=== PATIENT | female | born 1970 | race Caucasian/White ===

== ENCOUNTER 2021-04-07 12:34 | Outpatient (REF) | payer OTHER, SELFPAY ==
--- NOTE | ~2021-04-07 | CT_ITS ---
EXAMINATION: CT ABDOMEN AND PELVIS WITH CONTRAST CLINICAL INFORMATION: Palpable right umbilical mass. COMPARISON: None TECHNIQUE: Multidetector volumetric images were obtained from the superior aspect of the liver through the pubic symphysis following administration 85 mL of Omnipaque 350 intravenous contrast. Sagittal and coronal reformatted images were obtained on the technologist's workstation. Oral contrast: No This CT examination was performed using dose optimization techniques as appropriate, variously including the following: *Automated exposure control *Adjustment of mA and/or kV according to patient size (this includes techniques or standardized protocols for targeted exams where dose is matched to indication/reason for exam; i.e. extremities or head) *Use of iterative reconstruction technique DLP: 492 mGy-cm FINDINGS: LUNG BASES: Minimal atelectatic change is seen in the lingula. The lung bases are clear. LIVER, GALLBLADDER, AND BILIARY TREE: The liver is normal in size, shape, and attenuation. There are 6 mm and 8 mm hypodense lesions in the caudate lobe and the left hepatic lobe (image 11/3). The gallbladder is unremarkable with no evidence of radiopaque gallstones, gallbladder wall thickening, or obvious pericholecystic inflammatory changes. PANCREAS: Unremarkable. SPLEEN: Unremarkable. ADRENAL GLANDS: Unremarkable. KIDNEYS AND URETERS: The kidneys are normal in size, shape, and attenuation. No hydronephrosis, hydroureter, or calculi seen. No perinephric stranding. There is mild fullness of the right kidney pelvis. BLADDER: Unremarkable. GASTROINTESTINAL TRACT: There is oral contrast and stool seen in the colon without distention. The small bowel loops are normal caliber. The appendix is normal caliber. No free air or free fluid seen. There is a large mass arising from the right pelvis and extending above the umbilicus. It measures 12.8 cm in craniocaudad length, 10.8 cm wide and 12.8 cm in AP dimension and approximately 21 Hounsfield units. It is most likely an ovarian or right paraovarian complex cyst. There is another inferior hypodense lesion measuring 2.3 x 1.5 cm on sagittal image 67/6. This may be a second lesion or part of the larger lesion with septation. ABDOMINAL WALL: No evidence of hernia. LYMPH NODES: Normal. VASCULAR: Unremarkable. PELVIC VISCERA: The uterus is anteverted and appears unremarkable. The left adnexa is unremarkable. There is no free fluid seen. OSSEOUS STRUCTURES: There are degenerative disc changes with vacuum disc phenomenon and ventral and posterior spondylosis. No lytic or sclerotic process seen. CT/CT abdomen pelvis w con IMPRESSION: Large right adnexal lesion extending above the umbilicus in the abdomen. It is a thin sliver of parenchymal tissue along the inferior and anterior wall, likely ovarian. This is most likely a large ovarian complex cyst. Inferiorly, there is a smaller second lesion or part of the larger lesion with septation. Mild fullness of the right kidney pelvis. Mild constipation. Most likely liver cysts.
[2021-04-07] MEDS: iohexoL 350 MG/ML 100 ML INFUS..BTL IV (16:06)
== END 2021-04-07 12:35 | disposition home or self-care (01) ==
LOC: HO.CT 12:34
PROVIDERS: Visit Provider Internal Medicine
DX: R19.05 Periumbilic swelling, mass or lump (principal)
CPT/HCPCS: 74177; Q9967

== ENCOUNTER → 2022-01-25 09:29 | Outpatient (BNVA) | payer OTHER, SELFPAY | PROVIDERS: PCP Internal Medicine; Visit Provider Psychiatry & Neurology Neurology ==

== ENCOUNTER → 2022-02-23 15:08 | Outpatient (REF) | payer OTHER, SELFPAY | LOC: HO.SL 15:08 | PROVIDERS: PCP Internal Medicine; Visit Provider Psychiatry & Neurology Neurology | DX: R06.83 Snoring (principal) | CPT/HCPCS: 95806 ==

== ENCOUNTER 2022-08-05 16:00 | Outpatient (REF) | payer OTHER, SELFPAY ==
--- NOTE | ~2022-08-05 | MM_ITS ---
EXAMINATION: MM SCREENING DIGITAL BREAST TOMOSYNTHESIS, BILATERAL CLINICAL INFORMATION: Screening. Asymptomatic. The lifetime risk of breast cancer based on the Tyrer-Cuzick Model is 14%. COMPARISON: Mammography: 11/28/2019, 02/09/2017, 01/24/2017 TECHNIQUE: Digital breast tomosynthesis is performed in both the craniocaudal and mediolateral oblique views along with computer-aided detection (CAD). Synthesized 2D images are generated from the tomosynthesis. FINDINGS: There are scattered areas of fibroglandular density (ACR BI-RADS breast composition Category b). There are no significant masses, abnormal calcifications, or other abnormalities. There are benign grouped dermal calcifications posterior 7:00 left breast. The axilla and skin contours are unremarkable. Parenchymal pattern is similar to prior studies. MM/MM tomosynthesis screening BI IMPRESSION: No mammographic evidence of malignancy. ASSESSMENT: BI-RADS 2: Benign RECOMMENDATION: Routine annual mammography screening. This patient's information was entered into a reminder system with a target due date for their next mammogram.
== END 2022-08-05 16:01 | disposition home or self-care (01) ==
LOC: HO.MAMMO 16:00
PROVIDERS: PCP Internal Medicine; Visit Provider Internal Medicine
DX: Z12.31 Encounter for screening mammogram for malignant neoplasm of breast (principal)
CPT/HCPCS: 77063; 77067

== ENCOUNTER 2022-10-21 11:05 | Day surgery (SDC) | payer OTHER, SELFPAY ==
[2022-10-18 14:19] VITALS: BMI 32.8
--- NOTE | 2022-10-20 10:23 | HO.ANESPROP2 ---
Documented by User: Sandra Osborne NP 10/20/22 10:24 HPI - Anesthesia Eval Consult details Narrative: 52yo F for Colonoscopy PMFSH Active Problems Active Problems: All Active Problems (Updated 07/19/22 @ 11:28 by Heydi Almeida PA-C) Rectal bleeding (Acute) Encounter for screening colonoscopy (Acute) Restless legs (Acute) Loud snoring (Acute) Deviated nasal septum (Acute) Past Medical History Medical History Deviated nasal septum Loud snoring Restless legs Family History Family History Father No problems noted. Mother No problems noted. Maternal Grandmother Colon cancer Surgical History Surgical History H/O: hysterectomy History of Hx of colonoscopy Social History Social History Household Members: Family Alcohol intake: current Alcohol intake frequency: does not drink Patient Tobacco Use Status: Never used Tobacco Use of substances other than those prescribed or required for medical reasons: No Are you DNR?: No Advance Directives: No Advance Directives Information Provided: Yes Current occupational status: employed Current occupation: [employer] [place] [employer] Meds Allergies Allergy/AdvReac Type Severity Reaction Status Date / Time house dust Allergy Mild unknown Verified 10/01/22 13:10 cat dander Allergy Sneezing Verified 10/01/22 13:10 Home Medications Medication Instructions Recorded Confirmed Last Taken Type lorazepam 0.5 mg tablet 1 tab PO BEDTIME PRN Insomnia 10/18/22 10/18/22 Unknown History Exam Exam Date and Time: October 20, 2022 1023 Height,Weight and Vital Signs: Height 5 ft 4 in Weight 86.8 kg Assessment and Plan Assessment Anesthesia Assessment: Chart Reviewed Documented by User: Barrington Forrest MD 10/21/22 12:43 [facility] Past Medical History Medical History Deviated nasal septum Loud snoring Restless legs Family History Family History Father No problems noted. Mother No problems noted. Maternal Grandmother Colon cancer Family history of problems with anesthesia: No Surgical History Surgical History H/O: hysterectomy History of Hx of colonoscopy History of Problems with Anesthesia: No Social History Social History Household Members: Family Alcohol intake: current Alcohol intake frequency: does not drink Patient Tobacco Use Status: Never used Tobacco Use of substances other than those prescribed or required for medical reasons: No Are you DNR?: No Advance Directives: No Advance Directives Information Provided: Yes Current occupational status: employed Current occupation: [employer] [place] [employer] Meds Allergies Allergy/AdvReac Type Severity Reaction Status Date / Time house dust Allergy Mild unknown Verified 10/01/22 13:10 cat dander Allergy Sneezing Verified 10/01/22 13:10 Home Medications Medication Instructions Recorded Confirmed Last Taken Type lorazepam 0.5 mg tablet 1 tab PO BEDTIME PRN Insomnia 10/18/22 10/18/22 Unknown History Exam Airway Mallampati Class: III TM Dist: >3cm Loose/Missing/Broken Teeth: No Heart: rrr Lungs: clear Assessment and Plan Final Anesthetic Review Family History of Problems with Anesthesia: No History of Problems with Anesthesia: No NPO: Yes ASA Class: II Final Preanesthetic Review: No Changes in Pt Med Stat, Meds/Allgs Chart Reviewed, Consent Obtained/Reviewed and Anes Risks/Benef Reviewed Patient Risk: Low Procedure Risk: Low Anesthetic Plan Anesthetic Plan: MAC: Disposition: Standard PACU
[2022-10-21 11:49] VITALS: BP 132/89; PULSE 78; RESP 18; TEMP 36.8; O2SAT 98; BMI 29.2
[2022-10-21] MEDS: Lactated Ringers 1,000 ML 100 ML IVCONT (12:12)
--- NOTE | 2022-10-21 12:32 | MHC.SHP ---
Pre-Procedural Eval Section A Date of Service: 10/21/22 Section B Chief Complaint: rectal bleeding Details of Present Illness: 52y.o F with intermittent rectal bleeding x months. Also with fam hx of CRC in grandparents. Recent PALOMO. Medical History: No relevant PMH History of Previous Operations: Relevant previous surgery/procedure and date(s) (PALOMO ) Allergies: Allergies Allergy/AdvReac Type Severity Reaction Status Date / Time house dust Allergy Mild unknown Verified 10/01/22 13:10 cat dander Allergy Sneezing Verified 10/01/22 13:10 Review of Systems Review of Systems Comment: 10 point ROS negative except as above Exam Exam Comment: Gen appear: No acute distress, well nourished HEENT: no icterus Chest: No overt resp distress Abd: soft, nontender, nondistended Psych: Stable affect, answering questions appropriately Neuro: A/Ox3 noted to move all extremities spontaneously Ext: no peripheral edema Plan Diagnosis/Plan: Unchanged I have reviewed the history and physical and performed a pertinent physical examination on my patient. No changes have occurred unless specified.
--- NOTE | 2022-10-21 12:43 | P.OP_ITS ---
Operative Note Operative Note Date of Service: 10/21/22 Narrative: Procedure: Colonoscopy Indication: Intermittent BRBPR Endoscopist: Roberta Potter MD Anesthesia Provider: Dr Barrington Forrest Anesthesia type: MAC Instrument: Olympus [id number]-H190L Consent: Indication, risks vs benefits, and alternatives were discussed with the patient who gave written informed consent to proceed. EKG, pulse, pulse oximetry and blood pressure were monitored throughout the procedure. Please see anesthesia flowsheet. Procedure: The patient was brought to the procedure room and placed in the left lateral decubitus position. IV medications were administered by the anesthesia provider in attendance. A digital rectal exam was performed which was normal. The colonoscope was then inserted through the anus and advanced through the colon to the cecum at 70 cm,and terminal ileum. Mucosa was carefully examined under high definition white light as the instrument was slowly withdrawn in a retrograde panoramic fashion. Retroflexion was performed in ascending colon and rectum. The procedure was not difficult. There were no immediate obvious complications. The quality of the prep was BBPS: 2+3+2 = adequate Withdrawal time 12 minutes. Limitations: No limitations. Findings: Mucosa: Normal to cecum and terminal ileum. Protruding lesions: * Medium internal hemorrhoids without stigmata of recent bleeding. Impression: 1. Normal colon and teminal ileum mucosa 3. Internal hemorrhoids Recommendations: - Intermittent bleeding likely from hemorrhoids. - Repeat colonoscopy in 10 years for CRC screening
[2022-10-21 13:22] VITALS: BP 140/88; PULSE 67; RESP 18; TEMP 36.2; O2SAT 98
[2022-10-21 13:37] VITALS: BP 137/85; PULSE 69; RESP 18; TEMP 36.2; O2SAT 99
== END 2022-10-21 14:39 | disposition home or self-care (01) ==
PROVIDERS: PCP Internal Medicine; Visit Provider Internal Medicine
PROC: 0DJD8ZZ Inspection of Lower Intestinal Tract, Via Natural or Artificial Opening Endoscopic (ICD-10-PCS; CPT 45378; principal; 2022-10-21 12:10)
DX: K62.5 Hemorrhage of anus and rectum (principal); K64.8 Other hemorrhoids; G25.81 Restless legs syndrome; Z90.710 Acquired absence of both cervix and uterus; Z79.899 Other long term (current) drug therapy
CPT/HCPCS: 45378

== ENCOUNTER 2023-02-14 12:32 | Outpatient (REF) | payer OTHER, SELFPAY ==
--- NOTE | ~2023-02-14 | XR_ITS ---
EXAMINATION: XR FOOT, RIGHT CLINICAL INFORMATION: Right heel pain. COMPARISON: None available. TECHNIQUE: AP, lateral, and oblique views of the right foot. FINDINGS: Bony alignment and mineralization are normal. No fracture, dislocation right ankle joint effusion is seen. Boehler's angle is normal. There is a small plantar calcaneal spur. There is very mild degenerative change of the right first metatarsophalangeal joint. There is no focal soft tissue swelling, gas or foreign body seen. XR/XR foot RT min 3V IMPRESSION: 1. No fracture, dislocation or right ankle joint effusion is seen. 2. There is a small right calcaneal plantar spur. 3. There is very mild degenerative change of the right first metatarsophalangeal joint.
== END 2023-02-14 12:33 | disposition home or self-care (01) ==
LOC: HO.XRAY 12:32
PROVIDERS: PCP Internal Medicine; Visit Provider Physician Assistant
DX: M79.671 Pain in right foot (principal)
CPT/HCPCS: 73630

== ENCOUNTER → 2023-05-04 11:02 | Outpatient (BNVA) | payer OTHER, SELFPAY | PROVIDERS: PCP Internal Medicine; Visit Provider Surgery ==

== ENCOUNTER → 2023-05-09 14:39 | Outpatient (BNVA) | payer OTHER, SELFPAY | PROVIDERS: PCP Internal Medicine; Visit Provider Nurse Practitioner Family ==

== ENCOUNTER → 2023-05-20 10:54 | Outpatient (BNVA) | payer OTHER, SELFPAY | PROVIDERS: PCP Internal Medicine; Visit Provider Surgery ==

== ENCOUNTER → 2023-09-02 14:45 | Outpatient (BNV) | payer OTHER, SELFPAY | PROVIDERS: PCP Internal Medicine; Visit Provider Radiology Diagnostic Radiology | DX: Z12.31 Encounter for screening mammogram for malignant neoplasm of breast (principal) | CPT/HCPCS: 77063; 77067 ==

== ENCOUNTER 2023-09-02 14:53 | Outpatient (REF) | payer OTHER, SELFPAY | END 2023-09-02 14:54 | disposition home or self-care (01) | LOC: HO.MAMMO 14:53 | PROVIDERS: PCP Internal Medicine; Visit Provider Internal Medicine | DX: Z12.31 Encounter for screening mammogram for malignant neoplasm of breast (principal) | CPT/HCPCS: 77063; 77067 ==

== ENCOUNTER 2023-10-20 13:19 | Outpatient (REF) | payer OTHER, SELFPAY ==
[2023-10-20 15:58] LABS: MANUAL DIFF FLAG NO
[2023-10-20 16:06] LABS: Basophils Percent Auto 0.6 % (0-2); Eosinophils Absolute Auto 0.4 X10*3/uL (0.0-0.4); Eosinophils Percent Auto 7.7 % (0-4); Hematocrit 40.9 % (37.0-47.0); Hemoglobin 13.2 g/dl (12.0-16.0); Imm Gran Abs Auto 0.01 X10*3/uL (0.00-0.03); Imm Gran Pct Auto 0.2 % (0.0-0.4); Lymphocytes Absolute Auto 1.5 X10*3/uL (1.2-4.9); Lymphocytes Percent Auto 31.6 % (20-40); Mean Corpuscular HGB Conc 32.3 g/dl (31.0-35.0); Mean Corpuscular Hemoglobin 28.6 pg (27.0-33.0); Mean Corpuscular Volume 88.5 fL (80.0-98.0); Mean Platelet Volume 10.8 fL (9.4-12.3); Monocytes Absolute Auto 0.6 X10*3/uL (0.1-1.2); Monocytes Percent Auto 12.9 % (2-11); Neutrophils Absolute Auto 2.2 x10*3/uL (2.0-8.3); Platelet Count 203 X10*3/uL (160-400); Red Blood Count 4.62 X10*6/uL (4.20-5.50); Red Cell Distribution Width 13.2 % (11.0-16.0); White Blood Count 4.7 X10*3/uL (4.8-10.8)
[2023-10-20 16:22] LABS: Anion Gap 10 (12-20); Blood Urea Nitrogen 16 mg/dL (9-16); Calcium 9.1 mg/dL (8.4-10.2); Carbon Dioxide 28 mmol/L (22-29); Chloride 104 mmol/L (96-108); Estimated Glomerular Filt Rate > 60; Glucose Random 100 mg/dL (60-115); Sodium 138 mmol/L (135-145)
[2023-10-24 11:09] LABS: CA-125 12 U/mL (<35)
== END 2023-10-20 13:20 | disposition home or self-care (01) ==
LOC: HO.HMGCLDS 13:19
PROVIDERS: PCP Internal Medicine; Visit Provider Obstetrics & Gynecology Gynecologic Oncology
DX: D39.10 Neoplasm of uncertain behavior of unspecified ovary (principal)
CPT/HCPCS: 36415; 80048; 85025; 86304

== ENCOUNTER 2023-11-29 13:14 | Outpatient (REF) | payer OTHER, SELFPAY ==
[2023-11-30 09:54] LABS: BV Int Neg Control Negative (Negative); BV Int Pos Control Positive (Positive)
== END 2023-11-29 13:15 | disposition home or self-care (01) ==
LOC: HO.LNP 13:14
PROVIDERS: PCP Internal Medicine; Visit Provider Advanced Practice Midwife
DX: N89.8 Other specified noninflammatory disorders of vagina (principal)
CPT/HCPCS: 87480; 87510; 87660

== ENCOUNTER 2023-11-29 13:14 | Outpatient (AMB) | payer OTHER, SELFPAY ==
[2023-11-29 13:25] VITALS: BP 118/78; BMI 33.3
--- NOTE | 2023-11-29 13:25 | A.OFFVIS_ITS ---
Intake Vital Signs 11/29/23 13:25 Height 5 ft 4 in Weight 194 lb BMI 33.3 BP 118/78 Blood Pressure Location Rt brachial Intake Visit Reasons: ? prolapse Intake Note: Pt c/o feeling a''bulge'' in vaginal area. 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 She denies any abnormal discharge, pelvic pain, or vaginal pain. She admits to have gained weight. Vaginal dryness with intimacy. History of a hysterectomy due to a borderline can ovarian cyst followed by Gyne Onc every 6 months. She reports a sanchez umbilical bulge at times and is wondering if she has some prolapse. [facility] Medical History (Updated 11/29/23 @ 14:14 by CHELY Lincoln) Diabetes Restless legs Loud snoring Deviated nasal septum Surgical History (Updated 11/29/23 @ 13:51 by Candice Romano CNM) Hx of colonoscopy H/O: hysterectomy History of Family History Father No problems noted. Mother No problems noted. Maternal Grandmother Colon cancer Social History Household Members: Family Alcohol intake: current Alcohol intake frequency: holidays/special occasions only Patient Tobacco Use Status: Never used Tobacco Current occupational status: employed Current occupation: [employer] [place] [employer] Female Reproductive History Menstrual control method: none Menopause type: surgical Total pregnancies: 2 Full term: 2 Number of Living Children: 2 Date of last pap smear: 03/29/23 History of abnormal pap smear: No Date of Mammogram: 09/02/23 Review of Systems Const All systems reviewed & are unremarkable except as noted in HPI and below Physical Exam Vital Signs: Last Vital Signs BP 118/78 11/29/23 13:25 BMI result Body Mass Index 33.3 Const General: cooperative, healthy appearing and no acute distress Orientation/consciousness: patient oriented x3 GI Other: Possible periumbilical hernia possible sanchez umbilical hernia Inspection: Yes normal to inspection and Yes scar Palpation (GI): Soft to palpation, Hernia present (Possible periumbilical hernia to the left) and Other GI palpation findings present (Nontender) Rectal Exam - Female: visual inspection normal Other: No external defects, masses, lesions or prolapse normal vaginal, hymenal mucosa. General: Yes bladder normal to palpation External Female Exam: normal appearance of the urethra Speculum Exam - Vagina: normal appearance of the vagina, normal palpation, abnormal vaginal discharge (White and clumpy) and other (Anterior cystocele no significant prolapse with Valsalva) Speculum Exam - Cervix: Cervix absent (No lesions or nodules of the vaginal cuff) Bimanual exam- vagina & uterus: normal bimanual exam, normal palpation, bladder normal to palpation and uterus absent Bimanual Exam- Adnexa, other: normal adnexae Neuro General: patient oriented x3 Assessment & Plan Assessment & Plan (1) Vaginal discharge: Code(s): N89.8 - Other specified noninflammatory disorders of vagina (2) Vaginal dryness: Code(s): N89.8 - Other specified noninflammatory disorders of vagina Plan Discussed: Patient reassured there is no obvious prolapse or abnormal vaginal tissue concerns. Replens moisturizer, website for product information. Return to Gyne/Onc for surveillance, discuss concerns for periumbilical hernia with her surgeons there. If any acute pain to follow up in the ED preop Await for BV panel results. All of her questions and concerns were addressed to the best of my ability. She is agreeable to the plan of care. Orders: Orders Bacterial Vaginosis Panel Today N89.8 - Other specified noninflammatory disorders of vagina Coding Level of Care Code New Pt Level 3 (08162) Diagnoses Vaginal discharge N89.8 Vaginal dryness N89.8
== END 2023-11-29 16:07 | disposition home or self-care (01) ==
LOC: HO.HWS 13:14
PROVIDERS: PCP Internal Medicine; Visit Provider Advanced Practice Midwife
DX: N89.8 Other specified noninflammatory disorders of vagina (principal)
CPT/HCPCS: 99203

== ENCOUNTER 2023-11-30 09:52 | Outpatient (REF) | payer OTHER, SELFPAY ==
--- NOTE | ~2023-11-30 | CT_ITS ---
EXAMINATION: CT ABDOMEN AND PELVIS WITH CONTRAST CLINICAL INFORMATION: Left pelvic palpable lump; question ovarian tumor. COMPARISON: CT abdomen and pelvis dated 04/07/2021. TECHNIQUE: Multidetector volumetric images were obtained from the superior aspect of the liver through the pubic symphysis following administration 85 mL of Omnipaque 350 intravenous contrast. Sagittal and coronal reformatted images were obtained on the technologist's workstation. Oral contrast: No This CT examination was performed using dose optimization techniques as appropriate, variously including the following: *Automated exposure control *Adjustment of mA and/or kV according to patient size (this includes techniques or standardized protocols for targeted exams where dose is matched to indication/reason for exam; i.e. extremities or head) *Use of iterative reconstruction technique DLP: 971 mGy-cm FINDINGS: LUNG BASES: The visualized lung bases are unremarkable. LIVER, GALLBLADDER, AND BILIARY TREE: The liver is normal in size, shape, and attenuation. There are 4 benign, stable low-attenuation hepatic cysts and/or benign hemangiomas, which require no imaging follow-up (3:77, 84, 91 and 188). No new focal hepatic lesion or biliary ductal dilatation is present. The gallbladder is unremarkable with no evidence of radiopaque gallstones, gallbladder wall thickening, or obvious pericholecystic inflammatory changes. PANCREAS: Unremarkable. SPLEEN: Unremarkable. ADRENAL GLANDS: Unremarkable. KIDNEYS AND URETERS: The kidneys are normal in size, shape, and attenuation. No hydronephrosis, hydroureter, or calculi seen. No perinephric stranding. BLADDER: Unremarkable. GASTROINTESTINAL TRACT: Mild wall thickening is questioned of the gastroesophageal junction (3:90). The small and large bowel are unremarkable. No obstruction, free intraperitoneal air or abscess is seen. There is no appendicitis or diverticulitis. The vermiform appendix is normal. ABDOMINAL WALL: There is a tiny fat-containing umbilical hernia. LYMPH NODES: Normal. VASCULAR: Unremarkable. PELVIC VISCERA: The uterus is surgically absent. No pelvic mass, free fluid or lymphadenopathy is seen. OSSEOUS STRUCTURES: At L5-S1, there is marked degenerative disc disease, with vacuum disc phenomenon. There is multi-level thoracolumbar spondylosis and Schmorl's node formation. No acute or aggressive osseous finding is noted. CT/CT abdomen pelvis w IV con IMPRESSION: 1. Mild wall thickening is suspected of the gastroesophageal junction. This could be more fully evaluated with an upper GI series, if clinically indicated. 2. There is no bowel obstruction, free intraperitoneal air or abscess. No appendicitis or diverticulitis is seen. 4. No abdominopelvic mass, free fluid or lymphadenopathy is seen. The previously noted large complex right ovarian cyst is no longer identified, and there has been an interim hysterectomy. Please correlate with patient's past surgical history. 5. There is marked degenerative disc disease at L5-S1. No acute or aggressive osseous finding is noted. Fleischner guidelines were followed.
[2023-11-30] MEDS: iohexoL 350 MG/ML 100 ML INFUS..BTL IV (10:44)
[2023-11-30] MEDS: Barium Sulfate Oral (Vanilla) 450 ML ORAL.SUSP 900 ML PO (14:48)
[2023-12-01 07:10] LABS: Creatinine POC 0.8 mg/dL (0.5-1.4); GFR POC > 60
== END 2023-11-30 09:53 | disposition home or self-care (01) ==
LOC: HO.CT 09:52
PROVIDERS: PCP Internal Medicine; Visit Provider Physician Assistant Surgical
DX: R19.09 Other intra-abdominal and pelvic swelling, mass and lump (principal)
CPT/HCPCS: 74177; 82565; Q9967

== ENCOUNTER 2024-02-21 14:26 | Outpatient (AMB) | payer OTHER, SELFPAY ==
--- NOTE | 2024-02-21 14:29 | A.OFFVIS_ITS ---
Intake Vital Signs 3 02/21/24 14:37 Height 5 ft 4 in Weight 185 lb BMI 31.8 BP 144/74 H Blood Pressure Location Lt brachial Position Sitting Pulse 71 Intake Visit Reasons: umbilical hernia Intake Note: Patient is seen in office for evaluation and treatment of an umbilical hernia. Pt c/o: onset 4 months, painful at times, no increase, no heavy lifting, denies n/v/d/c, had imaging done CT: 11/30/23 Assistant Manager Required: No Accompanied by: Self / Same As Patient Allergies house dust Allergy (Mild, Verified 02/21/24 14:35) unknown cat dander Allergy (Verified 02/21/24 14:35) Sneezing HPI HPI Comments 2 History of Present Illness0 Details 53-year-old female patient presenting fo r evaluation of an umbilical hernia. She 1st noted the lump several months ago and noted occasional discomfort associated with the lump. She denies any severe pain nausea or vomiting. She was initially concerned that this may be related to her previous hysterectomy. She underwent evaluation with her PCP and a CT abdomen and pelvis was ordered in November. The CT revealed an umbilical hernia which contained a portion of the bowel wall. There was no evidence of bowel obstruction noted. She presents today to discuss possible repair of this umbilical hernia. She reports planning a vacation to [place] in April. [facility] Medical History Diabetes Restless legs Loud snoring Deviated nasal septum Surgical History Hx of colonoscopy H/O: hysterectomy History of Family History Father No problems noted. Mother No problems noted. Maternal Grandmother Colon cancer Social History Household Members: Family Alcohol intake: current Alcohol intake frequency: holidays/special occasions only Patient Tobacco Use Status: Never used Tobacco Current occupational status: employed Current occupation: [employer] [place] Review of Systems Const All systems reviewed & are unremarkable except as noted in HPI and below Denies chills, Denies fever(s), Denies headache(s), Denies poor appetite and Denies weakness ENT Denies headache(s) Card Denies chest pain, Denies irregular heart rhythm, Denies palpitations and Denies dyspnea Resp Denies cough, Denies excessive phlegm production and Denies dyspnea GI Denies abdominal pain, Denies bloating, Denies change in bowel habits, Denies constipation, Denies heartburn, Denies diarrhea, Denies nausea and Denies vomiting Denies urinary frequency Musc Denies back pain, Denies muscle weakness and Denies numbness Skin/Breast Denies changing lesions and Denies unusual bruising Neuro Denies headache(s), Denies numbness, Denies paresthesias and Denies weakness Psych Denies anxiety and Denies depression Endo Denies palpitations [place]/Lymph Denies lymphadenopathy Physical Exam Const General: cooperative and no acute distress Nutritional Appearance: well nourished Orientation/consciousness: patient oriented x3 Limitations: no limitations HEENT Head: Yes normocephalic and Yes atraumatic Ears: hearing grossly normal bilaterally Resp Effort & Inspection: normal respiratory effort, no audible wheezes, no cough and no respiratory distress Cardio Jugular venous distension: no JVD GI Inspection: Yes normal to inspection Abdomen image: 2 1. Site of palpable hernia with a midline incision noted. Hernia measures approximately 3 cm in diameter and is reducible. Skin Other: Warm, dry, no rash Neuro General: patient oriented x3 Extrem General: Yes no clubbing, cyanosis or edema Results Reviewed Results Reviewed: CT abdomen and pelvis: Assessment & Plan Assessment & Plan (1) Umbilical hernia without mention of obstruction or gangrene: Code(s): K42.9 - Umbilical hernia without obstruction or gangrene Qualifiers: Obstruction and gangrene presence: without obstruction or gangrene Qualified Code(s): K42.9 - Umbilical hernia without obstruction or gangrene Plan 53-year-old female patient presenting with a palpable lump near the umbilicus which developed recently and confirmed by CT abdomen and pelvis to be an umbilical hernia. On examination she has a reducible umbilical hernia measuring approximately 3 cm in diameter. I recommended a repair of the umbilical hernia with mesh as a short-stay surgery. After discussion of the procedure, risks, and alternatives, she consents to the repair of this umbilical hernia with mesh. Coding Level of Care Code New Pt Level 4 (90199) Diagnoses Umbilical hernia without obstruction and without gangrene K42.9 Obstruction and gangrene presence: without obstruction or gangrene
[2024-02-21 14:37] VITALS: BP 144/74; PULSE 71; BMI 31.8
== END 2024-02-21 14:56 | disposition home or self-care (01) ==
PROVIDERS: PCP Internal Medicine; Visit Provider Surgery
DX: K42.9 Umbilical hernia without obstruction or gangrene (principal)
CPT/HCPCS: 99204

== ENCOUNTER → 2024-02-21 14:26 | Outpatient (BNVA) | payer OTHER, SELFPAY | PROVIDERS: PCP Internal Medicine; Visit Provider Surgery ==

== ENCOUNTER 2024-03-14 10:00 | Day surgery (SDC) | payer OTHER, SELFPAY ==
[2024-03-12 08:31] VITALS: BMI 31.8
--- NOTE | 2024-03-12 13:11 | HO.ANESPROP2 ---
Documented by User: Sandra Osborne NP 03/12/24 13:12 HPI - Anesthesia Eval Consult details Narrative: 53yo F for Hernia Umbilical Reducible with mesh ? DM. In hx but no rx PMFSH Active Problems Active Problems: All Active Problems Umbilical hernia without mention of obstruction or gangrene (Acute) Foot pain, bilateral (Acute) Knee pain (Acute) BMI 30.0-30.9,adult (Acute) Morbid (severe) obesity due to excess calories (Acute) AARON (obstructive sleep apnea) (Acute) Rectal bleeding (Acute) Encounter for screening colonoscopy (Acute) Restless legs (Acute) Loud snoring (Acute) Deviated nasal septum (Acute) Past Medical History Medical History (Updated 03/14/24 @ 12:17 by Gail Garduno RN) Sleep apnea Asthma Hx of transfusion of packed red blood cells Diabetes Restless legs Loud snoring Deviated nasal septum Family History Family History Father No problems noted. Mother No problems noted. Maternal Grandmother Colon cancer Family history of problems with anesthesia: No Surgical History Surgical History Hx of colonoscopy H/O: hysterectomy History of History of Problems with Anesthesia: No Social History Social History Household Members: Family Alcohol intake: current Alcohol intake frequency: holidays/special occasions only Patient Tobacco Use Status: Never used Tobacco Use of substances other than those prescribed or required for medical reasons: No Are you DNR?: No Advance Directives: No Advance Directives Information Provided: Yes Current occupational status: employed Current occupation: [employer] Meds Allergies Allergy/AdvReac Type Severity Reaction Status Date / Time house dust Allergy Mild unknown Verified 03/14/24 10:13 cat dander Allergy Sneezing Verified 03/14/24 10:13 Home Medications ?Medication ?Instructions ?Recorded ?Confirmed ?Last Taken ?Type estradiol 0.025 mg/24 hr 1 patch transdermal 2XW 05/04/23 03/14/24 Unknown History semiweekly transdermal patch albuterol sulfate 90 mcg/actuation 2 puff inhalation Q6H PRN 05/09/23 03/14/24 Unknown History aerosol inhaler Shortness Of Breath Or Wheezing Exam Height,Weight and Vital Signs: Height 5 ft 4 in Weight 83.915 kg Assessment and Plan Assessment Anesthesia Assessment: Chart Reviewed Final Anesthetic Review Family History of Problems with Anesthesia: No History of Problems with Anesthesia: No Documented by User: Christie Rodríguez MD 03/14/24 12:21 [facility] Past Medical History Medical History (Updated 03/14/24 @ 12:17 by Gail Garduno RN) Sleep apnea Asthma Hx of transfusion of packed red blood cells Diabetes Restless legs Loud snoring Deviated nasal septum Family History Family History Father No problems noted. Mother No problems noted. Maternal Grandmother Colon cancer Surgical History Surgical History Hx of colonoscopy H/O: hysterectomy History of Social History Social History Household Members: Family Alcohol intake: current Alcohol intake frequency: holidays/special occasions only Patient Tobacco Use Status: Never used Tobacco Use of substances other than those prescribed or required for medical reasons: No Are you DNR?: No Advance Directives: No Advance Directives Information Provided: Yes Current occupational status: employed Current occupation: [employer] Meds Allergies Allergy/AdvReac Type Severity Reaction Status Date / Time house dust Allergy Mild unknown Verified 03/14/24 10:13 cat dander Allergy Sneezing Verified 03/14/24 10:13 Home Medications ?Medication ?Instructions ?Recorded ?Confirmed ?Last Taken ?Type estradiol 0.025 mg/24 hr 1 patch transdermal 2XW 05/04/23 03/14/24 Unknown History semiweekly transdermal patch albuterol sulfate 90 mcg/actuation 2 puff inhalation Q6H PRN 05/09/23 03/14/24 Unknown History aerosol inhaler Shortness Of Breath Or Wheezing Exam Airway Mallampati Class: II TM Dist: >3cm Neck ROM: Full Heart: rrr Lungs: cta Assessment and Plan Assessment Anesthesia Assessment: Anesthesia Plan Discussed Final Anesthetic Review NPO: Yes ASA Class: II Final Preanesthetic Review: No Changes in Pt Med Stat, Meds/Allgs Chart Reviewed and Consent Obtained/Reviewed Patient Risk: Low Procedure Risk: Low Anesthetic Plan Anesthetic Plan: GA Disposition: Standard PACU
[2024-03-14] VITALS (7 sets, daily range): BP systolic 114–144; BP diastolic 78–87; PULSE 60–106; RESP 15–18; TEMP 36.5–36.8; O2SAT 95–99; BMI 30.2
[2024-03-14] MEDS: Lactated Ringers 1,000 ML 100 ML IVCONT (10:38)
--- NOTE | 2024-03-14 11:51 | MHC.SHP ---
Pre-Procedural Eval Section A - 24 Hr Update-Section A only Date of Service: 03/14/24 The patient is an INPATIENT: No Changes since office visit: Yes Patient answered all questions; No Cold of Flu in the past 2 weeks, No New Medical Problems and No Changes in Medication The patient has been examined within 24 hours of the surgical procedure. The History & Physical has been completed within 30 days and I have reviewed it.: Yes Section B - Complete if H&P > 30 days Chief Complaint: Umbilical hernia without obstruction or gangrene Allergies: Allergies Allergy/AdvReac Type Severity Reaction Status Date / Time house dust Allergy Mild unknown Verified 03/14/24 10:13 cat dander Allergy Sneezing Verified 03/14/24 10:13 Plan Diagnosis/Plan: Unchanged I have reviewed the history and physical and performed a pertinent physical examination on my patient. No changes have occurred unless specified. Time Spent With Patient Time: Total time managing care of this patient today ____ minutes.
--- NOTE | 2024-03-14 13:30 | P.OP_ITS ---
Operative Note Operative Note Date of Service: 03/14/24 Narrative: Preoperative diagnosis: Reducible incisional/umbilical hernia, 3 cm diameter Postoperative diagnosis: Same Procedure: Repair of incisional/umbilical hernia, 3 cm, reducible Surgeon: Karel Green MD Medical Office Clerk: Bessie Sauceda PA-C Anesthesia: General endotracheal Indications for procedure: 53-year-old female presenting with a palpable lump in the umbilicus at the site of a previous surgery. She reports the lump increases in size with lifting and straining but reduces when in the supine position. On examination the patient has a small incisional/umbilical hernia at the site of a previous surgery. There is no tenderness to palpation. CT abdomen and pelvis confirms bowel within the hernia. Operative findings: 3 cm incisional/umbilical hernia, reducible repaired using a 6.4 cm round Ventralex mesh. Specimen: None Estimated blood loss: 3 mL Complications: None Procedure details: Patient was brought to the OR placed in a supine position. After administering general anesthesia the patient's abdomen was prepped with ChloraPrep and draped in a sterile fashion. A surgical time-out was called the consent confirmed. Patient received preoperative antibiotics and Venodyne boots were in place. Local anesthesia consisting of 0.5% Sensorcaine was infiltrated in the midline adjacent to the umbilicus. Incision was then made in the midline and carried down through subcutaneous tissue. Dissection was continued down to the hernia sac. This was then dissected free from the surrounding subcutaneous tissue down to the fascial defect. Fascial defect was then further defined using electrocautery. The defect was then reduced into the abdominal cavity. A preperitoneal space was then created using a combination of blunt and electrocautery dissection. A 6.4 cm Ventralex mesh round was then obtained. This was deployed within the preperitoneal space and secured in 4 quadrants using a 0 Tycron suture. The fascia was then closed over the mesh using [id number] 0 Tycron sutures incorporating the mesh within the closure. Wounds were then irrigated with saline solution and suctioned dry. The umbilical skin was then secured to the fascia using a 3-0 Polysorb suture. De rmis was then reapproximated using interrupted 3-0 Polysorb sutures. Skin was closed using a running subcuticular 4-0 Polysorb suture. Sterile dressings consisting of Steri-Strips, 2 x 2 gauze and Tegaderm were then applied. The patient tolerated the procedure well. Sponge, instrument, needle counts reported as correct. The patient was transferred to PACU in stable condition.
[2024-03-14] MEDS: oxyCODONE HCl Immed Release 5 MG TABLET PO (14:25)
== END 2024-03-14 15:33 | disposition home or self-care (01) ==
PROVIDERS: PCP Internal Medicine; Visit Provider Surgery
PROC: (CPT 49593; principal; 2024-03-14 11:30)
DX: K42.9 Umbilical hernia without obstruction or gangrene (principal); G25.81 Restless legs syndrome; R06.83 Snoring; Z79.899 Other long term (current) drug therapy; Z98.890 Other specified postprocedural states
CPT/HCPCS: 49593; C1781; J0330; J0665; J0690; J1100; J1596; J2250; J2405; J2704; J3010

== ENCOUNTER → 2024-03-14 10:00 | Outpatient (BNV) | payer OTHER, SELFPAY | PROVIDERS: PCP Internal Medicine; Visit Provider Surgery | DX: K42.9 Umbilical hernia without obstruction or gangrene (principal) | CPT/HCPCS: 49593 ==

== ENCOUNTER → 2024-03-23 09:44 | Outpatient (BNVA) | payer OTHER, SELFPAY | PROVIDERS: PCP Internal Medicine; Visit Provider Surgery ==

== ENCOUNTER 2024-03-27 09:53 | Outpatient (AMB) | payer OTHER, SELFPAY ==
--- NOTE | 2024-03-27 09:56 | A.OFFVIS_ITS ---
Vital Signs 03/27/24 10:03 Weight 181 lb BP 120/77 Blood Pressure Location Rt brachial Position Sitting Pulse 69 Intake Visit Reasons: S/P umbilical hernia w/mesh Intake Note: This patient presents for a post-op assessment status post umbilical hernia repair with mesh. Patient c/o; reports feel a lump under the incision. Field Control Inspector Required: No Accompanied by: Self / Same As Patient Allergies house dust Allergy (Mild, Verified 03/27/24 10:02) unknown cat dander Allergy (Verified 03/27/24 10:02) Sneezing Medication List - Last Reconciled 03/27/24 by Karel Green MD albuterol sulfate 90 mcg/actuation 2 puffs inhalation Q6H PRN docusate sodium (Colace) 100 mg PO DAILY estradiol 1 patch transdermal 2XW fluticasone propionate 50 mcg/actuation sprays intranasal HPI Comments Details: 53-year-old female patient status post repair of a large umbilical hernia on 03/14/2024. The repair was performed using a Ventralex 6.4 cm round mesh. She tolerated the procedure well but does note some hardness around the previous incision. She denies any redness or discharge. [facility] Medical History (Updated 03/14/24 @ 12:17 by Gail Garduno RN) Sleep apnea Asthma Hx of transfusion of packed red blood cells Diabetes Restless legs Loud snoring Deviated nasal septum Surgical History (Updated 03/27/24 @ 10:04 by CHELY Marrero) History of umbilical hernia repair Hx of colonoscopy H/O: hysterectomy History of Family History Father No problems noted. Mother No problems noted. Maternal Grandmother Colon cancer Social History Household Members: Family Alcohol intake: current Alcohol intake frequency: holidays/special occasions only Patient Tobacco Use Status: Never used Tobacco Current occupational status: employed Current occupation: [employer] Physical Exam Const General: comfortable Nutritional Appearance: well nourished Orientation/consciousness: patient oriented x3 Resp Effort & Inspection: normal respiratory effort GI Other: Well-healed umbilical incision in the midline over the previous incision. Small seroma noted in the umbilicus. No changes noted with Valsalva maneuvers. Neuro General: patient oriented x3 Assessment & Plan Assessment & Plan (1) Umbilical hernia without mention of obstruction or gangrene: Code(s): K42.9 - Umbilical hernia without obstruction or gangrene Category: Medical Qualifiers: Obstruction and gangrene presence: without obstruction or gangrene Qualified Code(s): K42.9 - Umbilical hernia without obstruction or gangrene Plan: Patient returns 1 week following repair of an umbilical hernia with mesh. She tolerated the procedure well. There may be a small seroma residual at the site of the previous hernia. I recommended observation with return in 1 month for follow-up examination. She should continue to avoid lifting greater than 10 lb until that time. Coding Level of Care Code Global (17604) Diagnoses Umbilical hernia without obstruction and without gangrene K42.9 Obstruction and gangrene presence: without obstruction or gangrene
[2024-03-27 10:03] VITALS: BP 120/77; PULSE 69
== END 2024-03-27 10:10 | disposition home or self-care (01) ==
PROVIDERS: PCP Internal Medicine; Visit Provider Surgery
DX: K42.9 Umbilical hernia without obstruction or gangrene (principal)
CPT/HCPCS: 99212

== ENCOUNTER → 2024-03-27 09:53 | Outpatient (BNVA) | payer OTHER, SELFPAY | PROVIDERS: PCP Internal Medicine; Visit Provider Surgery ==

== ENCOUNTER 2024-09-01 09:24 | Outpatient (REF) | payer OTHER, SELFPAY ==
[2024-09-01 11:08] LABS: MANUAL DIFF FLAG NO
[2024-09-01 11:09] LABS: Basophils Absolute Auto 0.1 X10*3/uL (0.0-0.2); Basophils Percent Auto 1.3 % (0-2); Eosinophils Absolute Auto 0.3 X10*3/uL (0.0-0.4); Eosinophils Percent Auto 4.8 % (0-4); Hematocrit 41.9 % (37.0-47.0); Hemoglobin 13.8 g/dl (12.0-16.0); Imm Gran Abs Auto 0.01 X10*3/uL (0.00-0.03); Imm Gran Pct Auto 0.2 % (0.0-0.4); Lymphocytes Absolute Auto 2.1 X10*3/uL (1.2-4.9); Mean Corpuscular HGB Conc 32.9 g/dl (31.0-35.0); Mean Corpuscular Hemoglobin 29.4 pg (27.0-33.0); Mean Corpuscular Volume 89.1 fL (80.0-98.0); Mean Platelet Volume 10.7 fL (9.4-12.3); Monocytes Absolute Auto 0.5 X10*3/uL (0.1-1.2); Monocytes Percent Auto 8.5 % (2-11); Neutrophils Absolute Auto 2.6 x10*3/uL (2.0-8.3); Neutrophils Percent Auto 47.2 % (45-73); Platelet Count 222 X10*3/uL (160-400); Red Cell Distribution Width 12.5 % (11.0-16.0); White Blood Count 5.4 X10*3/uL (4.8-10.8)
[2024-09-01 11:23] LABS: Estimated Average Glucose 108 mg/dL; Hemoglobin A1C 117.9645 umol/L; Hemoglobin A1c % 5.4 % (<6.0); Total Hemoglobin (HGBA1C) 3294.7482 umol/L
[2024-09-01 11:33] LABS: Alanine Aminotransferase 25 U/L (0-31); Anion Gap 11 (12-20); Aspartate Amino Transferase 22 U/L (5-31); Blood Urea Nitrogen 16 mg/dL (9-16); Calcium 9.6 mg/dL (8.4-10.2); Carbon Dioxide 27 mmol/L (22-29); Chloride 107 mmol/L (96-108); Cholesterol 223 mg/dL (<200); Estimated Glomerular Filt Rate > 60; Glucose Random 91 mg/dL (60-115); HDL Cholesterol 68 mg/dL (>40); LDL Cholesterol Calculated 138 mg/dL (<100); Potassium 4.2 mmol/L (3.3-5.1); Sodium 141 mmol/L (135-145); Triglycerides 89 mg/dL (<150)
[2024-09-01 11:51] LABS: Thyroid Stimulating Hormone 1.68 uIU/mL (0.32-4.0)
[2024-09-04 08:13] LABS: CA-125 11 U/mL (<35)
== END 2024-09-01 09:25 | disposition home or self-care (01) ==
LOC: HO.HMGCLDS 09:24
PROVIDERS: PCP Internal Medicine; Visit Provider Internal Medicine
DX: Z00.00 Encounter for general adult medical examination without abnormal findings (principal); R73.9 Hyperglycemia, unspecified; Z13.29 Encounter for screening for other suspected endocrine disorder; Z13.220 Encounter for screening for lipoid disorders; Z90.711 Acquired absence of uterus with remaining cervical stump
CPT/HCPCS: 36415; 80048; 80061; 83036; 84443; 84450; 84460; 85025; 86304

== ENCOUNTER 2024-10-17 13:25 | Outpatient (REF) | payer OTHER, SELFPAY ==
--- NOTE | ~2024-10-17 | MM_ITS ---
EXAMINATION: MM SCREENING DIGITAL BREAST TOMOSYNTHESIS, BILATERAL CLINICAL INFORMATION: Screening. Asymptomatic. COMPARISON: Mammography: Comparison is made with available priors TECHNIQUE: Digital breast mammography with tomosynthesis is performed in both the craniocaudal and mediolateral oblique views along with computer-aided detection (CAD). FINDINGS: The breasts are heterogeneously dense, which may obscure small masses (ACR BI-RADS breast composition Category c). There are no significant masses, abnormal calcifications, or other abnormalities. MM/MM tomosynthesis screening BI IMPRESSION: No mammographic evidence of malignancy. ASSESSMENT: BI-RADS BI-RADS 1 - Negative RECOMMENDATION: Routine annual mammography screening. 1 year F/U This examination should not preclude the clinical evaluation of a suspicious palpable abnormality. This patient's information was entered into a reminder system with a target due date for their next mammogram. Electronically signed by: Rosemary Vallejo DO 10/26/2024 10:12 AM [facility]
== END 2024-10-17 13:26 | disposition home or self-care (01) ==
LOC: HO.MAMMO 13:25
PROVIDERS: PCP Internal Medicine; Visit Provider Internal Medicine
DX: Z12.31 Encounter for screening mammogram for malignant neoplasm of breast (principal)
CPT/HCPCS: 77063; 77067

== ENCOUNTER → 2024-10-17 13:30 | Outpatient (BNV) | payer OTHER, SELFPAY | PROVIDERS: PCP Internal Medicine; Visit Provider Internal Medicine | DX: Z12.31 Encounter for screening mammogram for malignant neoplasm of breast (principal) | CPT/HCPCS: 77063; 77067 ==

== ENCOUNTER 2024-12-13 10:24 | Outpatient (REF) | payer OTHER, SELFPAY ==
--- NOTE | ~2024-12-13 | US_ITS ---
EXAMINATION: US EXTRACRANIAL CAROTID DUPLEX, BILATERAL CLINICAL INFORMATION: Letter in the neck. [Copy COMPARISON: None available. TECHNIQUE: Real-time ultrasound and Doppler techniques (integrating B-mode 2-D vascular images, Doppler spectral analysis and color-flow Doppler imaging) were utilized to interrogate the extracranial carotid arteries, the vertebral arteries and proximal subclavian arteries bilaterally. The degree of stenosis is determined by criteria similar to NASCET. FINDINGS: Right Side: 1. There is no atherosclerotic plaque seen in the bifurcation/proximal ICA region. 2. The common carotid artery PSV proximally is 87.9 cm/s and distally 72.7 cm/s. 3. The proximal internal carotid artery velocities are 78 cm/s systolic and 39.3 cm/s diastolic. 4. The proximal external carotid artery PSV is 108 cm/s. 5. The vertebral artery shows antegrade flow. 6. The subclavian artery waveforms are normal. Left Side: 1. There is no atherosclerotic plaque seen in the bifurcation/proximal ICA region. 2. The common carotid artery PSV proximally is 125 cm/s and distally 73.9 cm/s. 3. The proximal internal carotid artery velocities are 70.4 cm/s systolic and 34 cm/s diastolic. 4. The proximal external carotid artery PSV is 103 cm/s. 5. The vertebral artery shows antegrade flow. 6. The subclavian artery waveforms are normal. US/US carotid duplex BI IMPRESSION: 1. RIGHT: No hemodynamically significant stenosis in right carotid artery. 2. LEFT: No hemodynamically significant stenosis and left carotid artery. 3. Normal antegrade flow seen in both vertebral arteries.. Electronically signed by: Alessandro Stuart MD 12/13/2024 01:35 PM EST
== END 2024-12-13 10:25 | disposition home or self-care (01) ==
LOC: HO.HMGCX 10:24
PROVIDERS: PCP Internal Medicine; Visit Provider Internal Medicine
DX: R09.89 Other specified symptoms and signs involving the circulatory and respiratory systems (principal)
CPT/HCPCS: 93880

== ENCOUNTER → 2024-12-13 10:49 | Outpatient (BNV) | payer OTHER, SELFPAY | PROVIDERS: PCP Internal Medicine; Visit Provider Radiology Diagnostic Radiology | DX: M53.82 Other specified dorsopathies, cervical region (principal) | CPT/HCPCS: 93880 ==

== ENCOUNTER 2024-12-28 14:55 | Outpatient (REF) | payer OTHER, SELFPAY ==
--- OUTSIDE RECORDS SUMMARY | 2024-12-28 14:59 | XMS_ITS | Encounter Summary ---
Author Organization [facility] Address [address] [place] [address] Care Team Providers Care Panel Raiser Operator Name Role Phone Manuelito Brown DO Primary Care Provider [phone] Encounter Details Date Type Department Care Team ([facility] st Contact Info) Description 12/24/2024 2:45 PM EST Office Visit Bariatric Surgery - [address] [place] [id number] Roseline Guzman PA [address] [place] [address] [place] [address] Class 1 obesity with body mass index (BMI) of 33.0 to 33.9 in adult, unspecified obesity type, unspecified whether serious comorbidity present (Primary Dx); Secondary hypertension Social History Tobacco Use Types Packs/Day Years Used Date Smoking Tobacco: Never Assessed Sex and Gender Information Value Date Recorded Sex Assigned at Not on file Gender Identity Not on file Sexual Orientation Not on file Job Start Date Occupation Industry Not on file Not on file Not on file documented as of this encounter Last Filed Vital Signs Vital Sign Reading Time Taken Comments Blood Pressure 153/98 12/24/2024 3:09 PM EST Pulse 83 12/24/2024 3:09 PM EST Temperature - - Respiratory Rate - - Oxygen Saturation 97% 12/24/2024 3:09 PM EST Inhaled Oxygen Concentration - - Weight 87.5 kg (193 lb) 12/24/2024 3:09 PM EST Height 162.6 cm (5' 4 ) 12/24/2024 3:09 PM EST Body Mass Index 33.13 12/24/2024 3:09 PM EST documented in this encounter Plan of Treatment Upcoming Encounters Date Type Department Care Team (Late st Contact Info) Description 01/01/2025 1:15 PM EST Telemedicine Bariatric Surgery - [place] [address] [place] [address] Roseline Guzman PA 95 [facility] [address] 1 [facility] Bariatric Surgery [place] [id number] 02/05/2025 10:00 AM EDT Nutrition Bariatric Surgery - [place] [address] [place] [address] [place], [place] [id number] 08/06/2025 1:30 PM EDT Office Visit Bariatric Surgery - [place] [address] [facility] [address] [place] [address] Radhika Echavarria PA [address] [facility] [address] [place] [address] Scheduled Orders Name Type Priority Associated Diagnoses Orde r Schedule CBC and differential Lab Routine Class 1 obesity with body mass index (BMI) of 33.0 to 33.9 in adult, unspecified obesity type, unspecified whether serious comorbidity present Secondary hypertension 1 Occurrences starting 12/24/2024 until 12/24/2025 Vitamin D 1,25 dihydroxy Lab Routine Class 1 obesity with body mass index (BMI) of 33.0 to 33.9 in adult, unspecified obesity type, unspecified whether serious comorbidity present Secondary hypertension 1 Occurrences starting 12/24/2024 until 12/24/2025 Iron and TIBC Lab Routine Class 1 obesity with body mass index (BMI) of 33.0 to 33.9 in adult, unspecified obesity type, unspecified whether serious comorbidity present Secondary hypertension 1 Occurrences starting 12/24/2024 until 12/24/2025 Comprehensive metabolic panel Lab Routine Class 1 obesity with body mass index (BMI) of 33.0 to 33.9 in adult, unspecified obesity type, unspecified whether serious comorbidity present Secondary hypertension 1 Occurrences starting 12/24/2024 until 12/24/2025 Ferritin Lab Routine Class 1 obesity with body mass index (BMI) of 33.0 to 33.9 in adult, unspecified obesity type, unspecified whether serious comorbidity present Secondary hypertension 1 Occurrences starting 12/24/2024 until 12/24/2025 Hemoglobin A1c Lab Routine Class 1 obesity with body mass index (BMI) of 33.0 to 33.9 in adult, unspecified obesity type, unspecified whether serious comorbidity present Secondary hypertension 1 Occurrences starting 12/24/2024 until 12/24/2025 Lipid panel Lab Routine Class 1 obesity with body mass index (BMI) of 33.0 to 33.9 in adult, unspecified obesity type, unspecified whether serious comorbidity present Secondary hypertension 1 Occurrences starting 12/24/2024 until 12/24/2025 Parathyroid hormone intact Lab Routine Class 1 obesity with body mass index (BMI) of 33.0 to 33.9 in adult, unspecified obesity type, unspecified whether serious comorbidity present Secondary hypertension 1 Occurrences starting 12/24/2024 until 12/24/2025 Vitamin A Lab Routine Class 1 obesity with body mass index (BMI) of 33.0 to 33.9 in adult, unspecified obesity type, unspecified whether serious comorbidity present Secondary hypertension 1 Occurrences starting 12/24/2024 until 12/24/2025 Vitamin B1 Lab Routine Class 1 obesity with body mass index (BMI) of 33.0 to 33.9 in adult, unspecified obesity type, unspecified whether serious comorbidity present Secondary hypertension 1 Occurrences starting 12/24/2024 until 12/24/2025 Vitamin B12 Lab Routine Class 1 obesity with body mass index (BMI) of 33.0 to 33.9 in adult, unspecified obesity type, unspecified whether serious comorbidity present Secondary hypertension 1 Occurrences starting 12/24/2024 until 12/24/2025 documented as of this encounter Visit Diagnoses Diagnosis Class 1 obesity with body mass index (BMI) of 33.0 to 33.9 in adult, unspecified obesity type, unspecified whether serious comorbidity present- Primary Secondary hypertension Other secondary hypertension, unspecified documented in this encounter Care Teams Panel Raiser Operator Relationship Specialty Start Date End Date Manuelito Brown DO [address] [place] [id number] PCP - General Internal Medicine 06/02/22 documented as of this encounter
--- OUTSIDE RECORDS SUMMARY | 2024-12-28 14:59 | XMS_ITS | Data Portability ---
Author Organization [place] - [facility], Allergy Address [address] [place] [phone] Assessment No assessment recorded. Plan of Treatment Reminders Order Date Submit Date Provider Last Modified By Organization Details Last Modified Time Details Appointments Establish ed 15 2024 10:30A M JAY SPRINGER MD Not available Not available Not available Lab None recorded. Referral None recorded. Procedures None recorded. Surgeries None recorded. Imaging None recorded. Medication Orders None recorded. Patient TargetsNo targets recorded. Patient Instructions Encounter Date Encounter Id Patient Instructions Last Modified By Organization Details Last Modified Time 04/11/2024 [id number] Nursing Documentation for Allergy Testing (Split Test): Vital Signs: Blood Pressure: 106/76 ? ? ? Pulse: ? ? ?82 Oxygen Saturation: ? ? ?97 % Weight: lbs: 170 ? ? ? kg: ? ? ? History of asthma: {{Yes* No}} Asthma Meds: ? ? ?.albuterol last used: ? ? ?weeks ago Chance that : {{Yes No* N/A}} Antihistamine use: {{Yes No*}} Med used: ? ? ? Nursing notes: Patient tolerated procedure well {{Yes* No}} Benadryl cream to test sites {{Yes No}} Patient became syncopal-placed in supine position {{Yes No}} Testing Performed by: {{ANIYA Caban, [facility]* Rox Hdez}} Requesting Provider {{Dr. Gabriela Begum}} bridget Not available 04/11/2024 11:28:49 Reason for Referral None Reported. Results Created Date Observation Date Name Description Value Unit Range Abnormal Flag Note LastModifiedBy Organization Detail LastModifiedTime 07/11/20 24 02/24/2022 imagi ng/di agnos tic resul t No observ ation record ed. [email or web address] Not Available 00:16:58 Result Notes None recorded. Problems Name Problem SNOMED Code Status Onset Date Resolution Date Notes Provider Name and Address Organization Details Recorded Time Allergic rhinitis 80923166 Active 2023 KVNG SHANNON MD [address] [facility],[place] [address], [place], [address] , [facility] 4 08:50:26 Obstructi ve sleep apnea syndrome 46101098 Active 2023 Obstructiv e sleep apnea (adult) (pediatric ); Note: Date Diagnosed: 03/17/2024 11:20 AM (G47.33) Not Available [facility] 4 02:36:04 Deviated nasal septum 029988917 Active 2023 Deviated nasal septum; Note: Date Diagnosed: 03/17/2024 11:36 AM (J34.2) Not Available [facility] 4 02:36:06 Polyp of nasal cavity and/or nasal sinus 141299666 Active 2023 Nasal polyp, unspecifie d; Note: Date Diagnosed: 03/17/2024 11:36 AM (J33.9) Not Available [facility] 4 02:36:09 Problem Notes None recorded. Procedures Surgical History Date Name Laterality Status Provider Name and Address Organization Details Recorded Time 4 Allergy Testing-Full completed EMELY CROCKER Jessica [address] [facility],[place] [address], [place], [address], [facility] 04/11/2024 11:27:45 Imaging Results Imaging Date Name Status LastModified by Organiz ation Details LastModified Time 02/24/2022 imaging/diag nostic result completed [email or web address] Information not available 07/11/2024 00:16:58 Procedure Notes None recorded. Medical Equipment None Reported. Medications Name Sig Start Date Stop Date Status Note LastModified by Organization Details LastModified Time prednisone 20 mg tablet TAKE 2 TABLETS BY MOUTH EVERY DAY FOR 5 DAYS active Not Available Not Available No t Available benzonatate 100 mg capsule TAKE 1 CAPSULE BY MOUTH THREE TIMES A DAY NEEDED FOR 7 DAYS active Not Available Not Available No t Available albuterol sulfate HFA 90 mcg/actuation aerosol inhaler INHALE 1 PUFF INTO THE LUNGS EVERY 4 HOURS NEEDED FOR 30 DAYS active Not Available Not Available No t Available fluticasone propionate 50 mcg/actuation nasal spray,suspensi on [place] 2 spray once a day active Not Available Not Available No t Available oxycodone 5 mg tablet active Not Available Not Available Not Available escitalopram 10 mg tablet active Not Available Not Available Not Available Wegovy 1.7 mg/0.75 mL subcutaneous pen injector active Not Available Not Available Not Available Vitals Date Recorded Oxygen saturation Oxygen saturation in Arterial blood by Pulse oximetry Heart rate Systolic blood pressure Diastolic blood pressure Provider Name and Address Organization Details Last Updated DateTime 4 97 % 97 % 82 /min 106 mm[Hg] 76 mm[Hg] [facility] [address], [address] [place], [place] - [facility] 4 10:57:45 Social History None recorded. Functional Status None recorded. Mental Status None recorded. Family History Nothing Reported. Medical History No medical history recorded. Gynecological HistoryNo gynecological history recorded. Obstetrics History GPAL:G 0 P 0 0 0 0 Past Encounters Encounter ID Performer Location Encounter Start Date Encounter Closed Date Diagnosis/Indication Diagnosis SNOMED-CT Code Diagnosis ICD10 Code Diagnosis Note [id number] KVNG SHANNON MD Allergy [address] [facility] 100 [place] [address] 04/11/2024 10:45:26 04/11/2024 13:09:17 Allergic rhinitis 47103702 J30.9 Health Concerns Section Related Observation LastModified by Organization Detai ls LastModified Time None Recorded Concern Status LastModified by Organization Details LastModified Time None Recorded Advance Directives Directive None Recorded Payers Encounter Date Sequence Insurance Name Policy Number Policy Olivo Covered Member ID Olivo Member ID Guarantor Name 04/11/2024 1 [employer] Trista S Kelsey [id number] Trista S Kelsey OBGyn Episode No OBEpisode recorded.
--- OUTSIDE RECORDS SUMMARY | 2024-12-28 14:59 | XMS_ITS | Clinical Summary ---
Author Organization [address] Address [address] [place] [phone] Phone Care Team Providers Care Microphone Boom Operator Name Role Phone FlacaManuelito holder Primary Care Provider [phone] Allergies No known active allergies Medications No known medications Encounters Date Type Department Care Team Description 12/24/2024 2:45 PM EST Office Visit Bariatric Surgery [address] [phone] Roseline Guzman PA Class 1 obesity with body mass index (BMI) of 33.0 to 33.9 in adult, unspecified obesity type, unspecified whether serious comorbidity present (Primary Dx); Secondary hypertension from Last 3 Months Social History Tobacco Use Types Packs/Day Years Used Date Smoking Tobacco: Never Assessed Sex and Gender Information Value Date Recorded Sex Assigned at Not on file Gender Identity Not on file Sexual Orientation Not on file Job Start Date Occupation Industry Not on file Not on file Not on file Last Filed Vital Signs Vital Sign Reading [...] Mass Index 33.13 12/24/2024 3:09 PM EST Plan of Treatment Upcoming Encounters Date Type Department Care Team (Late st Contact Info) Description 01/01/2025 1:15 PM EST Telemedicine Bariatric Surgery - [place] [address] [place] [phone] Roseline Guzman PA 95 [facility] 1 [facility] [place], [place] [id number] 02/05/2025 10:00 AM EDT Nutrition Bariatric Surgery - [place] [address] [place] [address] Jeana Dove, RD 95 [place] [address] 08/06/2025 1:30 PM EDT Office Visit Bariatric Surgery - [place] [address] [facility] 120 [place] [phone] Radhika Echavarria PA 271 [facility] 120 [place] [address] Health Maintenance Due Date Last Done Comments Breast Cancer Screening 1972 DTaP,Tdap,and Td Vaccines (1 - Tdap) 1991 Hepatitis B Vaccines (1 of 3 - 19+ 3-dose series) 1991 Cervical Cancer Screening: P ap Smear 1993 Zoster Vaccines (1 of 2) 2022 Cholesterol Screening (Lipid Panel) 10/19/2022 Colorectal Cancer Screening: Colonoscopy 10/19/2022 Depression Screening 10/19/2022 HIV Screening 10/19/2022 Hepatitis C Screening 10/19/2022 Social Influencers of Health Screening 10/19/2022 COVID-19 Vaccine (3 - 2023-2 5 season) 2024 04/16/2021, 03/27/2021 Influenza Vaccine (#1) 2024 Hypertension/CHF/CAD Annual BMP Blood Test 12/24/2024 HIB Vaccines Aged Out No longer eligi ble based on patient's age to complete this topic HPV Vaccines Aged Out No longer eligi ble based on patient's age to complete this topic Hepatitis A Vaccines Aged Out No long er eligible based on patient's age to complete this topic IPV Vaccines Aged Out No longer eligi ble based on patient's age to complete this topic MMR Vaccines Aged Out No longer eligi ble based on patient's age to complete this topic Meningococcal ACWY Vaccine Aged Out N o longer eligible based on patient's age to complete this topic Pneumococcal Vaccine: Pediatrics (0 to 5 Years) and At-Risk Patients (6 to 64 Years) Aged Out No longer eligible b ased on patient's age to complete this topic RSV Immunization Patients Under 20 months Aged Out No longer eligible b ased on patient's age to complete this topic Varicella Vaccines Aged Out No longer eligible based on patient's age to complete this topic Care Teams Microphone Boom Operator Relationship Specialty Start Date End Date Manuelito Brown DO [address] [place] [address] MIS Sullivan [phone] PCP - General Internal Medicine 06/02/22
[2024-12-28 16:31] LABS: MANUAL DIFF FLAG NO
[2024-12-28 16:39] LABS: Basophils Absolute Auto 0.1 X10*3/uL (0.0-0.2); Basophils Percent Auto 0.9 % (0-2); Eosinophils Absolute Auto 0.3 X10*3/uL (0.0-0.4); Eosinophils Percent Auto 4.9 % (0-4); Hematocrit 40.7 % (37.0-47.0); Hemoglobin 13.6 g/dl (12.0-16.0); Imm Gran Abs Auto 0.03 X10*3/uL (0.00-0.03); Imm Gran Pct Auto 0.4 % (0.0-0.4); Lymphocytes Absolute Auto 2.3 X10*3/uL (1.2-4.9); Mean Corpuscular HGB Conc 33.4 g/dl (31.0-35.0); Mean Corpuscular Hemoglobin 29.3 pg (27.0-33.0); Mean Corpuscular Volume 87.7 fL (80.0-98.0); Monocytes Absolute Auto 0.5 X10*3/uL (0.1-1.2); Monocytes Percent Auto 7.6 % (2-11); Neutrophils Absolute Auto 3.5 x10*3/uL (2.0-8.3); Neutrophils Percent Auto 52.2 % (45-73); Platelet Count 233 X10*3/uL (160-400); Red Blood Count 4.64 X10*6/uL (4.20-5.50); Red Cell Distribution Width 12.7 % (11.0-16.0); White Blood Count 6.7 X10*3/uL (4.8-10.8)
[2024-12-28 16:59] LABS: Estimated Average Glucose 108 mg/dL; Hemoglobin A1C 128.3295 umol/L; Hemoglobin A1c % 5.4 % (<6.0); Total Hemoglobin (HGBA1C) 3588.9392 umol/L
[2024-12-28 17:03] LABS: Alanine Aminotransferase 33 U/L (0-31); Albumin Level 4.3 g/dL (3.5-5.0); Alkaline Phosphatase 60 U/L (39-117); Anion Gap 17 (12-20); Aspartate Amino Transferase 30 U/L (5-31); Bilirubin Total 0.3 mg/dL (0.0-1.0); Blood Urea Nitrogen 20 mg/dL (9-16); Calcium 9.3 mg/dL (8.4-10.2); Carbon Dioxide 26 mmol/L (22-29); Chloride 102 mmol/L (96-108); Cholesterol 212 mg/dL (<200); Estimated Glomerular Filt Rate > 60; Glucose Random 94 mg/dL (60-115); HDL Cholesterol 55 mg/dL (>40); Iron 79 mcg/dL (30-160); LDL Cholesterol Calculated 114 mg/dL (<100); Percent Iron Saturation 29 % (15-50); Potassium 4.4 mmol/L (3.3-5.1); Sodium 141 mmol/L (135-145); Total Iron Binding Capacity 275 mcg/dL (228-428); Total Protein 7.8 g/dL (6.5-8.0); Triglycerides 219 mg/dL (<150); Unsaturated Iron Binding 196 ug/dL
[2024-12-28 17:07] LABS: Parathyroid Hormone Intact 83.9 pg/mL (8.7-77.1)
[2024-12-28 17:23] LABS: Ferritin 51 ng/mL (10-250)
[2024-12-28 17:28] LABS: Vitamin B12 741 pg/mL (200-900)
[2025-01-02 01:33] LABS: Vitamin A 58 mcg/dL (38-98)
[2025-01-05 12:19] LABS: Vitamin B1 64 nmol/L (8-30)
== END 2024-12-28 14:56 | disposition home or self-care (01) ==
LOC: HO.HMGCLDS 14:55
PROVIDERS: PCP Internal Medicine; Visit Provider Physician Assistant
DX: E66.811 Obesity, class 1 (principal); Z68.33 Body mass index [BMI] 33.0-33.9, adult; I15.9 Secondary hypertension, unspecified; Z13.1 Encounter for screening for diabetes mellitus
CPT/HCPCS: 36415; 80053; 80061; 82306; 82607; 82728; 83036; 83540; 83970; 84425; 84590; 85025

== ENCOUNTER 2025-01-22 15:13 | Outpatient (REF) | payer OTHER, SELFPAY ==
[2025-01-22 16:17] LABS: MANUAL DIFF FLAG NO
[2025-01-22 16:40] LABS: Basophils Absolute Auto 0.1 X10*3/uL (0.0-0.2); Basophils Percent Auto 0.9 % (0-2); Eosinophils Absolute Auto 0.4 X10*3/uL (0.0-0.4); Eosinophils Percent Auto 5.1 % (0-4); Hematocrit 39.8 % (37.0-47.0); Hemoglobin 13.5 g/dl (12.0-16.0); Imm Gran Abs Auto 0.02 X10*3/uL (0.00-0.03); Imm Gran Pct Auto 0.3 % (0.0-0.4); Lymphocytes Absolute Auto 2.6 X10*3/uL (1.2-4.9); Lymphocytes Percent Auto 37.5 % (20-40); Mean Corpuscular HGB Conc 33.9 g/dl (31.0-35.0); Mean Corpuscular Hemoglobin 29.6 pg (27.0-33.0); Mean Corpuscular Volume 87.3 fL (80.0-98.0); Monocytes Absolute Auto 0.5 X10*3/uL (0.1-1.2); Monocytes Percent Auto 7.9 % (2-11); Neutrophils Absolute Auto 3.3 x10*3/uL (2.0-8.3); Neutrophils Percent Auto 48.3 % (45-73); Platelet Count 230 X10*3/uL (160-400); Red Blood Count 4.56 X10*6/uL (4.20-5.50); Red Cell Distribution Width 12.6 % (11.0-16.0); White Blood Count 6.8 X10*3/uL (4.8-10.8)
[2025-01-22 17:59] LABS: Alanine Aminotransferase 25 U/L (0-31); Albumin Level 4.2 g/dL (3.5-5.0); Anion Gap 13 (12-20); Aspartate Amino Transferase 26 U/L (5-31); Bilirubin Direct 0.1 mg/dL (0.0-0.5); Bilirubin Total 0.3 mg/dL (0.0-1.0); Blood Urea Nitrogen 20 mg/dL (9-16); C Reactive Protein 0.27 mg/dL (< or = 0.50); Calcium 9.6 mg/dL (8.4-10.2); Carbon Dioxide 28 mmol/L (22-29); Chloride 105 mmol/L (96-108); Estimated Glomerular Filt Rate > 60; Glucose Random 118 mg/dL (60-115); Iron 75 mcg/dL (30-160); Percent Iron Saturation 26 % (15-50); Potassium 3.8 mmol/L (3.3-5.1); Sodium 142 mmol/L (135-145); Total Iron Binding Capacity 284 mcg/dL (228-428); Unsaturated Iron Binding 209 ug/dL
[2025-01-22 18:13] LABS: Thyroid Stimulating Hormone 1.71 uIU/mL (0.32-4.0)
[2025-01-22 18:46] LABS: Alkaline Phosphatase 65 U/L (39-117)
[2025-01-22 18:52] LABS: Erythrocyte Sedimentation Rate 7 MM/HR (0-20)
--- OUTSIDE RECORDS SUMMARY | 2025-01-22 19:25 | XMS_ITS | Clinical Summary ---
Author Organization [address] Address [address] [place] [phone] Phone Care Team Providers Care Railroad Passenger Agent Name Role Phone Manuelito Brown Primary Care Provider [phone] Allergies No known active allergies Medications tirzepatide (Mounjaro) 2.5 mg/0.5 mL injectionIndicat ions:Class 1 obesity with body mass index (BMI) of 33.0 to 33.9 in adult, unspecified obesity type, unspecified whether serious comorbidity present,Secondar y hypertension,AARON on CPAP Inject 0.5 mL (2.5 mg total) under the skin every 7 (seven) days. 2 mL 01/08/2025 5 Active Encounters Date Type Department Care Team Description 01/08/2025 11:15 AM EST Telemedicine Bariatric Surgery [address] [phone] Roseline Guzman PA Class 1 obesity with body mass index (BMI) of 33.0 to 33.9 in adult, unspecified obesity type, unspecified whether serious comorbidity present (Primary Dx); Secondary hypertension; AARON on CPAP 12/24/2024 2:45 PM EST Office Visit Bariatric Surgery [address] [phone] Roseline Guzman PA Class 1 obesity with body mass index (BMI) of 33.0 to 33.9 in adult, unspecified obesity type, unspecified whether serious comorbidity present (Primary Dx); Secondary hypertension from Last 3 Months Social History Tobacco Use Types Packs/Day Years Used Date Smoking Tobacco: Never Assessed Comments Unknown Sex and Gender Information Value Date Recorded Sex Assigned at Not on file Legal Sex Female 10:45 AM EST Gender Identity Not on file Sexual Orientation Not on file Last Filed Vital Signs [...] Care Team (Late st Contact Info) Description 04/18/2025 10:00 AM EDT Consult Bariatric Surgery - [place] 175 [facility] 120 [place] [phone] Radhika Echavarria PA 271 [facility] [place] [address] Health Maintenance Due Date Last Done Comments Breast Cancer Screening 1972 DTaP,Tdap,and Td Vaccines (1 - Tdap) 1991 Hepatitis B Vaccines (1 of 3 - 19+ 3-dose series) 1991 Cervical Cancer Screening: P ap Smear 1993 Pneumococcal Vaccine: 50+ Years (1 of 1 - PCV) 2022 Zoster Vaccines (1 of 2) 2022 Cholesterol [...] patient's age to complete this topic Meningococcal B Vacine Aged Out No lo nger eligible based on patient's age to complete [...] on patient's age to complete this topic Procedures Procedure Name Priority Date/Time Associated Diagnosis Comments EXTERNAL CLINICAL LAB 01/07/2025 EXTERNAL CLINICAL LAB 01/02/2025 EXTERNAL CLINICAL LAB 01/01/2025 from Last 3 Months Results * External clinical lab (01/07/2025) Only the most recent of3 resultswithin the time period is included. Provider [facility] BLOOD ORDERABLES Fin al Result from Last 3 Months Insurance [employer] ([facility]) Care Teams Railroad Passenger Agent Relationship Specialty Start Date End Date Manuelito Brown DO [address] [place] [phone] PCP - General Internal Medicine 06/02/22
--- OUTSIDE RECORDS SUMMARY | 2025-01-22 19:25 | XMS_ITS | Encounter Summary ---
Author Organization [facility] Address [address] [place] [address] Care Team Providers Care Secondary Education Professor Name Role Phone Kevin Manuelito WHITMAN Primary Care Provider [phone] Encounter Details Date Type Department Care Team ([facility] st Contact Info) Description 01/08/2025 11:15 AM EST Telemedicine Bariatric Surgery - [address] [phone] Roseline Guzman PA [address] [place] [address] [place] [address] Class 1 obesity with body mass index (BMI) of 33.0 to 33.9 in adult, unspecified obesity type, unspecified whether serious comorbidity present (Primary Dx); Secondary hypertension; AARON on CPAP Social History Tobacco Use Types Packs/Day Years Used Date Smoking Tobacco: Never Assessed Comments Unknown Sex and Gender Information Value Date Recorded Sex Assigned at Not on file Legal Sex Female 10:45 AM EST Gender Identity Not on file Sexual Orientation Not on file documented as of this encounter Ordered Prescriptions Prescription Sig Dispense Quantity Refills Last Filled Start Date End Date tirzepatide (Mounjaro) 2.5 mg/0.5 mL injectionIndicatio ns:Class 1 obesity with body mass index (BMI) of 33.0 to 33.9 in adult, unspecified obesity type, unspecified whether serious comorbidity present,Secondary hypertension,AARON on CPAP Inject 0.5 mL (2.5 mg total) under the skin every 7 (seven) days. 2 mL 01/08/2025 02/07/2025 documented in this encounter Progress Notes * MAHESH Mcmahan - 01/08/2025 11:15 AM EST CHIEF COMPLAINT Desires medical management of weight loss HPI Trista Cole is a 54 y.o. female with severe AARON cannot use CPAP due to prior broken nose, GERD, mild depression, hyperlipidemia, current BMI 33.13 who presents for medical weight management telehealth visit for review of labs. Labs reviewed today; no changes in health since last visit. Patient is currently not taking any meds for weight loss. Denies abdominal pain, nausea, vomiting, dysphagia, acid reflux/heartburn, alterations to bowel movements. Denies history of pancreatitis, personal/family history of thyroid cancer. Denies history of seizures. No changes in mental status. Patient denies suicidal ideation. No reported elevation in heart rate. No elevated blood pressures noted. HISTORY: No past medical history on file. No past surgical history on file. No family history on file. Allergies: No Known Allergies Current Meds: Current Outpatient Medications: tirzepatide (Mounjaro) 2.5 mg/0.5 mL injection, Inject 0.5 mL (2.5 mg total) under the skin every 7(seven) days., Disp: 2 mL, Rfl: 0 No visits with results within 1 Month(s) from this visit. Latest known visit with results is: No results found for any previous visit. VITAL SIGNS There were no vitals filed for this visit. There is no height or weight on file to calculate BMI. WEIGHT HISTORY: Wt Readings from Last 10 Encounters: 12/24/24 87.5 kg (193 lb) Review of systems: All other systems were reviewed and were negative. Active Problems: There is no problem list on file for this patient. PHYSICAL EXAM: Physical Exam was not performed as this was a telehealth visit ASSESSMENT/PLAN: Diagnoses and all orders for this visit: Class 1 obesity with body mass index (BMI) of 33.0 to 33.9 in adult, unspecified obesity type, unspecified whether serious comorbidity present (Primary) - tirzepatide (Mounjaro) 2.5 mg/0.5 mL injection; Inject 0.5 mL (2.5 mg total) under the skin every7 (seven) days. Secondary hypertension - tirzepatide (Mounjaro) 2.5 mg/0.5 mL injection; Inject 0.5 mL (2.5 mg total) under the skin every7 (seven) days. AARON on CPAP - tirzepatide (Mounjaro) 2.5 mg/0.5 mL injection; Inject 0.5 mL (2.5 mg total) under the skin every7 (seven) days. Trista Cole is a 54 y.o. female with severe AARON cannot use CPAP due to prior broken nose, GERD, mild depression, hyperlipidemia, current BMI 33.13 who presents for medical weight management telehealth visit. Labs reviewed; will send prescription for Mounjaro. The patient reports that it is covered by her insurance. Patient provided with education regarding nutrition/diet, exercise, and lifestyle modifications. Discussed the importance to eat 3 meals/day with focus on protein and veggies first, carbs last. Advised the patient to drink 64 fluid ounces/day. Focusing primarily on water or sugar free optionsand limiting caffeine intake. Emphasized the importance of strength training 3x/week; explained to patient that the loss of muscle mass occurs when taking weight loss meds. Advised the patient to take multivitamins daily. Avoid NSAIDs, alcohol, and smoking. Reiterated importance of developing sustainable modifications to diet and exercise habits that encourage long-term weight loss and maintenance. Reviewed common side effects of Mounjaro, and administration. Labs completed 12/28/24; reviewed BUN is 20, above normal limits ALT is 33, above normal limits, patient is advised to f/u with PCP Patient is noted to have hyperlipidemia Eosinophil above normal limit; hx of allergies Vitamin A & B1 are within normal limits Prescription for Mounjaro 2.5mg dose sent. Patient scheduled with Jeana Dove RD 02/05/25 Follow up in 1 week regarding Mounjaro coverage Total time spent 10 minutes, more than 50% of the time was spent counseling the patient. The patient received guidance on receiving healthcare through telehealth, including the use of HIPAA privacy -compliant technology for remote communication and its associated privacy risks. The patient was also informed of the limitations of treatment provided through telehealth and that in the event of a lost or failed video connection, the provider may call back or reschedule the visit. Alternatively, the patient may opt for an in-person visit. The patient gave consent for the use of video communication and provided care and confirmed that they were in a quiet and private location to discuss their health freely. The patient understands the visit will be submitted to their insurance and that they are responsible for any copay or deductible charges. Additionally, if the patient is LimitedEnglish Proficient, deaf, or hard of hearing, speech impaired, or has another disability which impairs their ability to communicate, the services of a qualified thoracic surgeon will be provided during the visit. Roseline Guzman PA-C documented in this encounter Plan of Treatment Upcoming Encounters Date Type Department Care Team (Late st Contact Info) Description 04/18/2025 10:00 AM EDT Consult Bariatric Surgery - [place] [address] [phone] Radhika Echavarria PA [address] [address] documented as of this encounter Visit Diagnoses Diagnosis Class 1 obesity with body mass index (BMI) of 33.0 to 33.9 in adult, unspecified obesity type, unspecified whether serious comorbidity present- Primary Secondary hypertension Other secondary hypertension, unspecified AARON on CPAP documented in this encounter Care Teams Secondary Education Professor Relationship Specialty Start Date End Date Manuelito Brown DO [address] [place] [phone] PCP - General Internal Medicine 06/02/22 documented as of this encounter
--- OUTSIDE RECORDS SUMMARY | 2025-01-22 19:25 | XMS_ITS | Continuity of Care Document ---
Author Organization [place] - [facility], [facility] Address [address] [place] [address] Care Team Providers Care Bread Stacker Name Role Phone ALIYAH KEMP Primary Care Provider Assessment Encounter Date Assessment Date Assessment LastModified by Organization Details LastModified Time 01/04/2025 01/04/2025 Patient presents today for follow-up of her nose. She was seen about a year ago for deviated septum, nasal polyps, and had allergy testing showing several sensitivities. She has also been diagnosed with severe sleep apnea she reports that she just wants to get surgery for her nose. I counseled her that while ultimately she may benefit from surgical intervention, there is some caveats to treatment. First is that treatment of the nose would not be curative for her sleep apnea except in the case it might allow her to tolerate CPAP better. Also, surgery alone for nasal polyps without a good medical regimen is usually not effective given they have a tendency to grow back quickly. I did recommend proceeding with a short course of steroids which should be effective at drinking the polyp so we have a sense of how much of her nasal obstruction is related to the septum versus the polyps. I counseled her that is important to use a nasal steroid regularly. We can get a better sense of her nasal anatomy with CT after the steroid course. [email or web address] Not available 01/13/2025 21:12:13 Plan of Treatment Reminders Order Date Submit Date Provider Last Modified By Organization Details Last Modified Time Details Appointments Establis [facility] 15 2024 02:45P Giovany SPRINGER MD Not available Not available Not available Lab None recorded . Referral None recorded . Procedures None recorded . Surgeries None recorded . Imaging CT, sinuses, w/o contrast 2024 025 [facility] (Imaging), [address] [place], [address], 01/14/2025 09:36:34 Medication Orders predniso ne 10 mg tablet 2024 025 [facility], [address] [place], [place], [id number], 01/04/2025 11:50:49 Patient TargetsNo targets recorded. Patient InstructionsNo instructions recorded. Reason for Referral None Reported. Problems Name Problem SNOMED Code Status Onset Date Resolution Date Notes Provider Name and Address Organization Details Recorded Time Allergic rhinitis 39046981 Active 2023 KVNG SHANNON MD 100 [facility],[place] [address], [place], [address] , [facility] 4 08:50:26 Obstructi ve sleep apnea syndrome 85657421 Active 2023 Obstructiv e sleep apnea (adult) (pediatric ); Note: Date Diagnosed: 03/17/2024 11:20 AM (G47.33) Not Available [facility] 4 02:36:04 Deviated nasal septum 436601714 Active 2023 Deviated nasal septum; Note: Date Diagnosed: 03/17/2024 11:36 AM (J34.2) Not Available [facility] 4 02:36:06 Polyp of nasal cavity and/or nasal sinus 283532268 Active 2023 Nasal polyp, unspecifie d; Note: Date Diagnosed: 03/17/2024 11:36 AM (J33.9) Not Available [facility] 4 02:36:09 Problem Notes None recorded. Procedures Surgical History Date Name Laterality Status Provider Name and Address Organization Details Recorded Time 4 Allergy Testing-Full completed CHELY MUSTAFA 100 [facility] 100, [place], [address], [facility] 04/11/2024 11:27:45 Imaging Results None recorded. Procedure Notes None recorded. Medical Equipment None Reported. Allergies No known drug allergies Medications Name Sig Start Date Stop Date Status Note LastModified by Organization Details LastModified Time prednisone 10 mg tablet Take 3 tabs for 4 days, 2 tabs for 4 days, 1 tab for 4 days active Not Available Not Available No t Available valacyclovir 1 gram tablet active Not Available Not Available Not Available prednisone 20 mg tablet TAKE 2 TABLETS BY MOUTH EVERY DAY FOR 5 DAYS 01/04 completed Not Available Not Available Not Available benzonatate 100 mg capsule TAKE 1 CAPSULE BY MOUTH THREE TIMES A DAY NEEDED FOR 7 DAYS 01/04 completed Not Available Not Available Not Available albuterol sulfate HFA 90 mcg/actuatio n aerosol inhaler INHALE 1 PUFF INTO THE LUNGS EVERY 4 HOURS NEEDED FOR 30 DAYS active Not Available Not Available No t Available fluticasone propionate 50 mcg/actuatio n nasal spray,suspen melinda [place] 2 spray once a day active Not Available Not Available No t Available oxycodone 5 mg tablet 01/04 completed Not Available Not Available Not Available escitalopram 10 mg tablet active Not Available Not Available Not Available Wegovy 1.7 mg/0.75 mL subcutaneous pen injector 01/04 completed Not Available Not Available Not Available Vitals Date Recorded Body height Body mass index (BMI) Body weight Provider Name and Address Organization Details Last Updated DateTime 01/04/2025 162.56 cm 32.6 kg/m2 01332.55 g Tess Han [place] - [facility] 01/04/2025 10:50:05 Social History None recorded. Functional Status None recorded. Mental Status None recorded. Family History Nothing Reported. Medical History No medical history recorded. Gynecological HistoryNo gynecological history recorded. Obstetrics History GPAL:G 0 P 0 0 0 0 Past Encounters Encounter ID Performer Location Encounter Start Date Encounter Closed Date Diagnosis/Indication Diagnosis SNOMED-CT Code Diagnosis ICD10 Code Diagnosis Note [id number] JAY SPRINGER MD [facility] of [address] [address] 01/04/2025 10:25:34 01/04/2025 11:18:03 Deviated nasal septum 795282764 J34.2 Obstructiv e sleep apnea syndrome 48862714 G47.33 Polyp of n angelina cavity and/or nasal sinus 003961396 J33.9 Health Concerns Section Related Observation LastModified by Organization Detai ls LastModified Time None Recorded Concern Status LastModified by Organization Details LastModified Time None Recorded Payers Encounter Date Sequence Insurance Name Policy Number Policy Olivo Covered Member ID Olivo Member ID Guarantor Name 01/04/2025 1 [employer] [place]) [id number] Trista Cole [id number] Trista Cole Notes Date Note Type Note Provider Name and Address Organization Details Recorded Time 01/04/2025 text/html 54 yo F presents for follow up.She has severe sleep apneabroke nose at 10deviated septumsnoring and breathing getting worsesaw nasal polyps, allergy testing showed some significant allergies, used to get allergy shots twice a week, did not want to do shots hard to breathelooking to lose weight PV: : Patient was referred for evaluation of mild obstructive sleep apnea. Her symptoms appear somewhat out of proportion to the severity of her diagnose sleep apnea. I discussed the possibility that her home sleep study may have underestimated her sleep apnea as mild. She is moving forward with CPAP trial in the near future which may be therapeutic in any case. Her examination today demonstrates a septal deflection to the left likely related to her childhood trauma. Her nasal bone structure appears intact at this time with no crepitus or significant deformity. Her intranasal examination with nasal endoscopy confirms presence of grade 2 nasal polyposis on the left and right side. Treatment for the nasal polyps with topical nasal steroid such as Flonase is prescribed at this time. Arrangements for allergy skin testing will also be made as she does have history of allergic rhinitis. Follow-up to review test results. At this time no surgical intervention for the deviated nasal septum or nasal polyps is recommended, but it may be considered in the future. JAY SPRINGER MD [address] [place] [address], [place], [address], [facility] - [facility] 01/13/2025 21:12:27 OBGyn Episode No OBEpisode recorded.
--- OUTSIDE RECORDS SUMMARY | 2025-01-22 19:25 | XMS_ITS | Data Portability ---
Author Organization [place] - [facility], Allergy Address [address] [address] Care Team Providers Care Field Mechanic Name Role Phone LUDA KEMPNO Primary Care Provider Assessment Encounter Date Assessment [...] Details Last Modified Time Details Appointments Establis [facility] 15 2024 02:45P Giovany SPRINGER MD Not available Not available Not available Lab None recorded . Referral None recorded . Procedures None recorded . Surgeries None recorded . Imaging CT, sinuses, w/o contrast 2024 025 [facility] (Imaging), [address] [place], [address], 01/14/2025 09:36:34 Medication Orders predniso ne 10 mg tablet 2024 025 [facility], [address] [place], [place], [id number], 01/04/2025 11:50:49 Patient TargetsNo targets recorded. Patient Instructions Encounter [...] {{Yes No}} Testing Performed by: {{ANIYA Caban, A* Rox Hdez}} Requesting Provider {{Dr. Gabriela Caballero* Richelle Begum}} [email or web address] Not available 04/11/2024 11:28:49 Reason for Referral None Reported. Results Created Date Observation Date Name Description Value Unit Range Abnormal Flag Note LastModifiedBy Organization Detail LastModifiedTime 07/11/20 24 02/24/2022 maximi ng/di margie tic resul t No observ ation record ed. [email or web address] Not Available 00:16:58 Result Notes None recorded. Problems Name Problem SNOMED Code Status Onset Date Resolution Date Notes Provider Name and Address Organization Details Recorded Time Allergic rhinitis 19468994 Active 2023 KVNG SHANNON MD 100 [facility], [place], [address] , [facility] 4 08:50:26 Obstructi ve sleep apnea syndrome 98304735 Active 2023 Obstructiv e sleep apnea (adult) (pediatric ); Note: Date Diagnosed: 03/17/2024 11:20 AM (G47.33) Not Available formerly [facility] 4 02:36:04 Deviated nasal septum 321513757 Active 2023 Deviated nasal septum; Note: Date Diagnosed: 03/17/2024 11:36 AM (J34.2) Not Available [facility] 4 02:36:06 Polyp of nasal cavity and/or nasal sinus 714221604 Active 2023 Nasal polyp, unspecifie d; Note: Date Diagnosed: 03/17/2024 11:36 AM (J33.9) Not Available [facility] 4 02:36:09 Problem Notes None recorded. Procedures Surgical History Date Name Laterality Status Provider Name and Address Organization Details Recorded Time 4 Allergy Testing-Full completed EMELY FLOREZ [facility] 100 [facility] 100, [place], [address], [facility] 04/11/2024 11:27:45 Imaging Results Imaging Date Name Status LastModified by Organiz [facility] Details LastModified Time 02/24/2022 imaging/diag nostic result [...] propionate 50 mcg/actuatio n nasal spray,suspen melinda [place] 2 spray once a day active Not [...] and Address Organization Details Last Updated DateTime 97 % 97 % 82 /min 106 mm[Hg] 76 mm[Hg] [address], [address] [place], [place] - [facility] 10:57:45 Date Recorded Body height Body mass index (BMI) Body weight Provider Name and Address Organization Details Last Updated DateTime 01/04/2025 162.56 cm 32.6 kg/m2 96460.55 g Tess Han [facility] 01/04/2025 10:50:05 Social History None recorded. Functional [...] Diagnosis Note [id number] KVNG SHANNON MD Allergy [address] [place] [address] [address] 04/11/2024 10:45:26 04/11/2024 13:09:17 Allergic rhinitis 29310589 J30.9 [id number] JAY SPRINGER MD [facility] of [address] [address] 01/04/2025 10:25:34 01/04/2025 11:18:03 Deviated nasal septum 928028234 J34.2 Obstructiv e sleep apnea syndrome 48295549 G47.33 Polyp of n angelina cavity and/or nasal sinus 042196919 J33.9 Health Concerns Section Related Observation LastModified by Organization Detai ls LastModified Time None Recorded Concern Status LastModified by Organization Details LastModified Time None Recorded Advance Directives Directive None Recorded Payers Encounter Date Sequence Insurance Name Policy Number Policy Olivo Covered Member ID Olivo Member ID Guarantor Name 04/11/2024 1 [employer] Trista Cole [id number] Trista Wieo 01/04/2025 1 [employer] [place]) [id number] Trista Weio [id number] Trista Weio Notes Date Note Type Note Provider Name [...] considered in the future. JAY SPRINGER MD [address] [place] [address], [address], [facility] - [facility] 01/13/2025 21:12:27 OBGyn Episode No OBEpisode recorded.
--- OUTSIDE RECORDS SUMMARY | 2025-01-22 19:25 | XMS_ITS ---
Author Name [facility] Organization Unknown History of Medication Use Medication Directions Dispensed Refills Start Date End Date Stat us tirzepatide (Mounjaro) 2.5 mg/0.5 mL injection Inject 0.5 mL (2.5 mg total) under the skin every 7 (seven) days. 01/08/2025 active No known medications No known medications active Problems Problem Status Onset Date Problem Type Date of Resolution Source AARON on CPAP active EncounterDiagnosisAct CT_THSFRAN Class 1 obesity with body mass index (BMI) of 33.0 to 33.9 in adult, unspecified obesity type, unspecified whether serious comorbidity present active EncounterDiagnosisAct CT_THS IOANA Secondary hypertension active EncounterDiagnosisAct CT_THS IOANA
--- OUTSIDE RECORDS SUMMARY | 2025-01-22 19:25 | XMS_ITS | Encounter Summary ---
Author Organization [facility] Address [address] [place] [address] Care Team Providers Care Nondestructive Tester Name Role Phone Manuelito Brown DO Primary Care Provider [phone] Encounter Details Date Type Department Care Team (Late st Contact Info) Description 12/24/2024 2:45 PM EST Office Visit Bariatric Surgery - [address] [place] [address] Roseline Guzman PA [address] [place] [address] [place] [address] Class 1 obesity with body mass index [...] 3:09 PM EST documented in this encounter Progress Notes * MAHESH Mcmahan - 12/24/2024 2:45 PM EST CHIEF COMPLAINT Desires medical management of weight loss HPI Trista Cole is a 54 y.o. female with severe obstruction sleep apnea cannot use CPAP due to prior broken nose, GERD, mild depression, current BMI 33.13 who presents for medical weight management. She tried keto and calorie restriction for weight loss in the past. Three years ago she weighted 175lbs. She admits that she gravitates to carbs. She has cravings for sweets and carbs. Specifically she will have nutella on bread. Patient is currently not taking any meds for weight loss. Denies abdominal pain, nausea, vomiting, dysphagia, acid reflux/heartburn, alterations to bowel movements. Denies history of pancreatitis, personal/family history of thyroid cancer. Denies history of seizures. No changes in mental status. Patient denies suicidal ideation. No reported elevation in heart rate. No elevated blood pressures noted. Of note, she takes one a day multivitamin. Diet Recall: She works from home Breakfast: peanut butter & jelly sandwich with 1 piece of bread Lunch: mac & cheese, chicken, bread Dinner: pasta, chicken, tuna salad Hydration: drinks 48-64 fluid ounces/day Has scheduled with the dietitian: No Participates in regular exercise: No She has a treadmill and plans to use it Highest weight current Current weight: 193 lbs Goal weight: 150-160lbs HISTORY: No past medical history on file. No past surgical history on file. No family history on file. Allergies: No Known Allergies Current Meds: No current outpatient medications on file. No visits with results within 1 Month(s) from this visit. Latest known visit with results is: No results found for any previous visit. VITAL SIGNS Vitals: 12/24/24 1509 BP: (!) 153/98 Pulse: 83 SpO2: 97% Body mass index is 33.13 kg/m??. WEIGHT HISTORY: Wt Readings from Last 10 Encounters: 12/24/24 87.5 kg (193 lb) Review of systems: All other systems were reviewed and were negative. Active Problems: There is no problem list on file for this patient. PHYSICAL EXAM: Physical Exam Constitutional: Appearance: calm, relaxed, no apparent distress Cardiovascular: Rate and Rhythm: Normal rate Pulmonary: Effort: Pulmonary effort is normal. Breath sounds: Normal breath sounds. Abdominal: General: Bowel sounds are normal. Palpations: Abdomen is soft. Tenderness: There is no abdominal tenderness. Musculoskeletal: General: Normal range of motion. Cervical back: Normal range of motion and neck supple. Skin: General: Skin is warm. Neurological: Mental Status: She is alert and oriented to person, place, and time. Psychiatric: Mood and Affect: Mood normal. ASSESSMENT/PLAN: Diagnoses and all orders for this visit: Class 1 obesity with body mass index (BMI) of 33.0 to 33.9 in adult, unspecified obesity type, unspecified whether serious comorbidity present (Primary) - CBC and differential; Future - Vitamin D 1,25 dihydroxy; Future - Iron and TIBC; Future - Comprehensive metabolic panel; Future - Ferritin; Future - Hemoglobin A1c; Future - Lipid panel; Future - Parathyroid hormone intact; Future - Vitamin A; Future - Vitamin B1; Future - Vitamin B12; Future Secondary hypertension - CBC and differential; Future - Vitamin D 1,25 dihydroxy; Future - Iron and TIBC; Future - Comprehensive metabolic panel; Future - Ferritin; Future - Hemoglobin A1c; Future - Lipid panel; Future - Parathyroid hormone intact; Future - Vitamin A; Future - Vitamin B1; Future - Vitamin B12; Future Trista Cole is a 54 y.o. female with severe obstruction sleep apnea cannot use CPAP due to prior broken nose, GERD, mild depression, current BMI 33.13 who presents for medical weight management. The patient will complete labs and be scheduled back to review results and further discuss weight loss med options. Patient provided with education regarding nutrition/diet, exercise, [...] that encourage long-term weight loss and maintenance. Labs ordered today. No prescriptions sent Patient is scheduled with Jeana Dove RD 02/05/25 Follow up in 1-2 weeks for review of lab results Total time spent 30 minutes, more than 50% of the time was spent counseling the patient. Roseline Guzman PA-C documented in this encounter Plan of Treatment Upcoming Encounters Date Type Department Care Team ([facility] st Contact Info) Description 04/18/2025 10:00 AM EDT Consult Bariatric Surgery - [place] 175 [facility] 120 [place] [address] Radhika Echavarria PA 271 [facility] 120 [place] [address] Scheduled Orders Name Type Priority Associated Diagnoses [...] unspecified documented in this encounter Care Teams Nondestructive Tester Relationship Specialty Start Date End Date Manuelito Brown DO [address] [place] [address] PCP - General Internal Medicine 06/02/22 documented as of this encounter
[2025-01-23 09:53] LABS: CA-125 10 U/mL (<35)
== END 2025-01-22 15:14 | disposition home or self-care (01) ==
LOC: HO.HMGCLDS 15:13
PROVIDERS: Internal Medicine; PCP Registered Nurse; Visit Provider Registered Nurse
DX: R00.2 Palpitations (principal); B00.1 Herpesviral vesicular dermatitis; E11.9 Type 2 diabetes mellitus without complications; G47.33 Obstructive sleep apnea (adult) (pediatric); F41.9 Anxiety disorder, unspecified; Z71.3 Dietary counseling and surveillance
CPT/HCPCS: 36415; 80053; 82248; 83540; 84443; 85025; 85652; 86140; 86304

== ENCOUNTER 2025-01-30 07:51 | Outpatient (REF) | payer OTHER, SELFPAY ==
--- NOTE | ~2025-01-30 | CT_ITS ---
CLINICAL HISTORY: POLYP OF NASAL CAVITY CT sinuses without contrast Comparison: None Findings: Moderate mucosal thickening involving the maxillary sinuses bilaterally measuring up to 8 mm in thickness. Diffuse mucosal thickening with near-complete opacification of the ethmoid air cells and sphenoid sinus. Frontal sinuses are hypoplastic with mild mucosal thickening. Obstruction of the ostiomeatal units bilaterally. Minimal leftward bony nasal septal deviation. No acute fracture. Globes are unremarkable. Temporomandibular joints are anatomically aligned. IMPRESSION: Pansinusitis. Obstruction of the bilateral ostiomeatal units. This document has been electronically signed by: Mitch Reeves MD on 01/30/2025 09:16:21
--- OUTSIDE RECORDS SUMMARY | 2025-01-30 07:54 | XMS_ITS | Encounter Summary ---
Author Organization [facility] Address [address] [place] [address] Care Team Providers Care Gold Assayer Name Role Phone LuisanaManuelito del toro Primary Care Provider [phone] Encounter Details Date Type Department Care Team (Late st Contact Info) Description 01/08/2025 11:15 AM EST Telemedicine Bariatric Surgery - [address] [place] [address] Roseline Guzman PA [address] [place] [address] 1 [place] [address] Class 1 obesity with body mass index [...] to communicate, the services of a qualified building illuminating engineer will be provided during the visit. Roseline Guzman PA-C documented in this encounter Plan of Treatment Upcoming Encounters Date Type Department Care Team (Late st Contact Info) Description 02/13/2025 4:15 PM EDT Telemedicine Bariatric Surgery [facility] [address] [address] Roseline Guzman PA [address] [place] [address] 04/18/2025 10:00 AM EDT Consult Bariatric Surgery [facility] [address] [phone] Radhika Echavarria PA 271 [facility] 120 [place] [address] documented as of this encounter Visit Diagnoses Diagnosis Class 1 obesity with body mass index (BMI) of 33.0 to 33.9 in adult, unspecified obesity type, unspecified whether serious comorbidity present- Primary Secondary hypertension Other secondary hypertension, unspecified AARON on CPAP documented in this encounter Care Teams Gold Assayer Relationship Specialty Start Date End Date Manuelito Brown DO [address] [place] [phone] PCP - General Internal Medicine 06/02/22 documented as of this encounter
--- OUTSIDE RECORDS SUMMARY | 2025-01-30 07:54 | XMS_ITS | Continuity of Care Document ---
Author Organization [place] - [facility], [facility] Address [address] [place] [address] Care Team Providers Care Brim Greaser Operator Name Role Phone ALIYAH KEMP Primary Care [...] Details Last Modified Time Details Appointments [facility] 2024 02:45P Giovany SPRINGER MD Not available Not available Not available Lab None recorded . Referral None recorded . Procedures None recorded . Surgeries None recorded . Imaging CT, sinuses, w/o contrast 2024 025 [facility] (Imaging), [address] [place], [address], 01/14/2025 09:36:34 Medication Orders predniso ne 10 mg tablet 2024 025 [facility], [address] [place], [place], [id number], 01/04/2025 11:50:49 Patient TargetsNo targets recorded. Patient InstructionsNo instructions recorded. Reason for Referral None Reported. Problems Name Problem SNOMED Code Status Onset Date Resolution Date Notes Provider Name and Address Organization Details Recorded Time Allergic rhinitis 06970814 Active 2023 KVNG SHANNON MD 100 [facility],[place] [address], [place], [address] , [facility] 4 08:50:26 Obstructi ve sleep apnea syndrome 58005757 Active 2023 Obstructiv e sleep apnea (adult) (pediatric ); Note: Date Diagnosed: 03/17/2024 11:20 AM (G47.33) Not Available [facility] 4 02:36:04 Deviated nasal septum 099837660 Active 2023 Deviated nasal septum; Note: Date Diagnosed: 03/17/2024 11:36 AM (J34.2) Not Available [facility] 4 02:36:06 Polyp of nasal cavity and/or nasal sinus 465263248 Active 2023 Nasal polyp, unspecifie d; Note: Date Diagnosed: 03/17/2024 11:36 AM (J33.9) Not Available [facility] 4 02:36:09 Problem Notes None recorded. Procedures Surgical History Date Name Laterality Status Provider Name and Address Organization Details Recorded Time 4 Allergy Testing-Full completed CHELY MUSTAFA 100 [facility] [address], [place], [address], [facility] 04/11/2024 11:27:45 Imaging Results None recorded. Procedure [...] propionate 50 mcg/actuatio n nasal spray,suspen melinda Paoli 2 spray once a day active Not [...] Updated DateTime 01/04/2025 162.56 cm 32.6 kg/m2 71427.55 g Tess Han [place] - [facility] 01/04/2025 10:50:05 Social History None recorded. Functional Status None recorded. Mental Status None recorded. Family History Nothing Reported. Medical History No medical history recorded. Gynecological HistoryNo gynecological history recorded. Obstetrics History GPAL:G 0 P 0 0 0 0 Past Encounters Encounter ID Performer Location Encounter Start Date Encounter Closed Date Diagnosis/Indication Diagnosis SNOMED-CT Code Diagnosis ICD10 Code Diagnosis Note [id number] JAY SPRINGER MD [facility] of [address] [address] 01/04/2025 10:25:34 01/04/2025 11:18:03 Deviated nasal septum 811668477 J34.2 Obstructiv e sleep apnea syndrome 09251488 G47.33 Polyp of n angelina cavity and/or nasal sinus 141478406 J33.9 Health Concerns Section Related Observation LastModified by Organization Detai ls LastModified Time None Recorded Concern Status LastModified by Organization Details LastModified Time None Recorded Payers Encounter Date Sequence Insurance Name Policy Number Policy Olivo Covered Member ID Olivo Member ID Guarantor Name 01/04/2025 1 [employer] [place]) [id number] Trista Cole [id number] Trista Cloe Notes Date Note Type Note Provider Name [...] considered in the future. JAY SPRINGER MD [address] [place] [address], [place], [address], [facility] - [facility] 01/13/2025 21:12:27 OBGyn Episode No OBEpisode recorded.
--- OUTSIDE RECORDS SUMMARY | 2025-01-30 07:54 | XMS_ITS | Clinical Summary ---
Author Organization [address] Address [address] [place] [phone] Phone Care Team Providers Care Diabetes Manager Name Role Phone Manuelito Brown Primary Care Provider [phone] Allergies No known active allergies Medications tirzepatide (Mounjaro) 2.5 mg/0.5 mL injectionIndicat ions:Class 1 obesity with body mass index (BMI) of 33.0 to 33.9 in adult, unspecified obesity type, unspecified whether serious comorbidity present,Secondar y hypertension,AARON on CPAP Inject 0.5 mL (2.5 mg total) under the skin every 7 (seven) days. 2 mL 5 02/08/20 25 Active naltrexone-bupro pion (CONTRAVE) 8-90 mg per ER tabletIndication s:Class 1 obesity with body mass index (BMI) of 33.0 to 33.9 in adult, unspecified obesity type, unspecified whether serious comorbidity present,Secondar y hypertension,AARON on CPAP week 1: 1 pill with breakfast, week 2: 1 pill with breakfast & 1 pill with dinner, week 3: 2 pills with breakfast & 1 pill with dinner, week 4: 2 pills with breakfast & 2 pills with dinner, be sure to have water when taking this medication 120 tablet 3 5 Active Encounters Date Type Department Care Team Description 01/08/2025 11:15 AM EST Telemedicine Bariatric Surgery [address] [address] Roseline Guzman PA Class 1 obesity with body mass index (BMI) of 33.0 to 33.9 in adult, unspecified obesity type, unspecified whether serious comorbidity present (Primary Dx); Secondary hypertension; AARON on CPAP 12/24/2024 2:45 PM EST Office Visit Bariatric Surgery - [address] [address] Roseline Guzman PA Class 1 obesity with [...] 02/13/2025 4:15 PM EDT Telemedicine Bariatric Surgery - [address] [phone] Roseline Guzman PA 95 [facility] 1 [facility] [place] [address] 04/18/2025 10:00 AM EDT Consult Bariatric Surgery [facility] 175 [facility] [address] [place] [phone] Radhika Echavarria PA 271 [facility] [address] [place] [address] Health Maintenance Due Date Last Done Comments [...] of3 resultswithin the time period is included. us Provider [facility] BLOOD ORDERABLES Fin al Result from Last [address] [place] [id number] [facility] ([facility]) Care Teams Diabetes Manager Relationship Specialty Start Date End Date Manuelito Brown DO [address] [place] [address] [place] [address] PCP - General Internal Medicine 06/02/22
== END 2025-01-30 07:52 | disposition home or self-care (01) ==
LOC: HO.CT 07:51
PROVIDERS: PCP Otolaryngology; Visit Provider Otolaryngology
DX: J33.9 Nasal polyp, unspecified (principal)
CPT/HCPCS: 70486

== ENCOUNTER → 2025-01-30 07:52 | Outpatient (BNV) | payer OTHER, SELFPAY | PROVIDERS: PCP Otolaryngology; Visit Provider Radiology Diagnostic Radiology | DX: J01.40 Acute pansinusitis, unspecified (principal) | CPT/HCPCS: 70486 ==

== ENCOUNTER 2025-05-16 13:22 | Outpatient (REF) | payer OTHER, SELFPAY ==
--- OUTSIDE RECORDS SUMMARY | 2025-05-16 16:09 | XMS_ITS | Clinical Summary ---
Author Organization [address] Address [address] [place] [address] Phone Care Team Providers Care Retail Clerk Name Role Phone Manuelito Brown DO Primary Care Provider [phone] Allergies No known active allergies Medications naltrexone-bupro pion (CONTRAVE) 8-90 mg per ER [...] when taking this medication 120 tablet 3 Active Encounters Date Type Department Care Team Description 02/13/2025 4:15 PM EDT Telemedicine Bariatric Surgery - [address] [address] Roseline Guzman PA Class 1 obesity with body mass index (BMI) of 33.0 to 33.9 in adult, unspecified obesity type, unspecified whether serious comorbidity present (Primary Dx); Secondary hypertension; AARON on CPAP from Last 3 Months Social History Tobacco [...] EST Inhaled Oxygen Concentration - - Weight 83.9 kg (185 lb) 02/13/2025 4:03 PM EDT Height 162.6 cm (5' 4 ) 02/13/2025 4:03 PM EDT Body Mass Index 31.76 02/13/2025 4:03 PM EDT Plan of Treatment Health Maintenance Due Date Last Done Comments [...] - 2023-2 5 season) 2024 04/16/2021, 03/27/2021 Hypertension/CHF/CAD Annual BMP Blood Test 12/24/2024 Influenza Vaccine (Season Ended) 2025 HIB Vaccines Aged Out No longer eligi [...] age to complete this topic Meningococcal B Vaccine Aged Out No l onger eligible based on patient's age to complete [...] on patient's age to complete this topic [place] [address] [place] [id number] [facility] ([facility]) Care Teams Retail Clerk Relationship Specialty Start Date End Date Manuelito Brown DO [address] [place] [address] [place] [address] PCP - General Internal Medicine 06/02/22
[2025-05-16 16:21] LABS: MANUAL DIFF FLAG NO
[2025-05-16 16:25] LABS: Basophils Absolute Auto 0.1 X10*3/uL (0.0-0.2); Eosinophils Absolute Auto 0.3 X10*3/uL (0.0-0.4); Eosinophils Percent Auto 4.4 % (0-4); Hematocrit 38.9 % (37.0-47.0); Hemoglobin 12.9 g/dl (12.0-16.0); Imm Gran Abs Auto 0.01 X10*3/uL (0.00-0.03); Imm Gran Pct Auto 0.2 % (0.0-0.4); Lymphocytes Absolute Auto 1.8 X10*3/uL (1.2-4.9); Lymphocytes Percent Auto 29.7 % (20-40); Mean Corpuscular HGB Conc 33.2 g/dl (31.0-35.0); Mean Corpuscular Hemoglobin 29.6 pg (27.0-33.0); Mean Corpuscular Volume 89.2 fL (80.0-98.0); Mean Platelet Volume 11.9 fL (9.4-12.3); Monocytes Absolute Auto 0.6 X10*3/uL (0.1-1.2); Monocytes Percent Auto 9.1 % (2-11); Neutrophils Absolute Auto 3.4 x10*3/uL (2.0-8.3); Neutrophils Percent Auto 55.6 % (45-73); Platelet Count 215 X10*3/uL (160-400); Red Blood Count 4.36 X10*6/uL (4.20-5.50); Red Cell Distribution Width 12.5 % (11.0-16.0); White Blood Count 6.2 X10*3/uL (4.8-10.8)
[2025-05-16 16:49] LABS: Alanine Aminotransferase 26 U/L (0-31); Albumin Level 4.4 g/dL (3.5-5.0); Alkaline Phosphatase 52 U/L (39-117); Anion Gap 12 (12-20); Aspartate Amino Transferase 28 U/L (5-31); Bilirubin Total 0.3 mg/dL (0.0-1.0); Blood Urea Nitrogen 19 mg/dL (9-16); Calcium 9.3 mg/dL (8.4-10.2); Carbon Dioxide 28 mmol/L (22-29); Chloride 104 mmol/L (96-108); Estimated Glomerular Filt Rate > 60; Glucose Random 92 mg/dL (60-115); Iron 62 mcg/dL (30-160); Percent Iron Saturation 23 % (15-50); Potassium 4.2 mmol/L (3.3-5.1); Sodium 140 mmol/L (135-145); Total Iron Binding Capacity 266 mcg/dL (228-428); Total Protein 7.1 g/dL (6.5-8.0); Unsaturated Iron Binding 204 ug/dL
[2025-05-16 16:54] LABS: Estimated Average Glucose 108 mg/dL; Hemoglobin A1c % 5.4 % (<6.0); Total Hemoglobin (HGBA1C) 3452.2777 umol/L
[2025-05-16 17:12] LABS: Ferritin 54 ng/mL (10-250)
[2025-05-17 16:34] LABS: CA-125 7 U/mL (<35)
== END 2025-05-16 13:23 | disposition home or self-care (01) ==
LOC: HO.HMGCLDS 13:22
PROVIDERS: Physician Assistant; PCP Internal Medicine; Referring Provider Physician Assistant Surgical; Visit Provider Internal Medicine
DX: R59.0 Localized enlarged lymph nodes (principal); K64.9 Unspecified hemorrhoids
CPT/HCPCS: 36415; 80053; 82728; 83036; 83540; 85025; 86304

== ENCOUNTER 2025-05-31 12:33 | Outpatient (REF) | payer OTHER, SELFPAY ==
[2025-05-31 16:49] LABS: Hemoglobin A1C 126.1666 umol/L; Total Hemoglobin (HGBA1C) 3545.5359 umol/L
== END 2025-05-31 12:34 | disposition home or self-care (01) ==
LOC: HO.HMGCLDS 12:33
PROVIDERS: Referring Provider Internal Medicine; Visit Provider Physician Assistant
DX: G47.33 Obstructive sleep apnea (adult) (pediatric) (principal); E66.9 Obesity, unspecified; Z13.1 Encounter for screening for diabetes mellitus
CPT/HCPCS: 36415; 83036

== ENCOUNTER 2025-05-31 12:33 | Outpatient (AMB) | payer OTHER, SELFPAY ==
--- OUTSIDE RECORDS SUMMARY | 2025-05-31 12:35 | XMS_ITS | Data Portability ---
Author Organization [place] - [facility], Allergy Address [address] [address] Care Team Providers Care Turbine Subassembler Name Role Phone ALIYAH KEMP Primary Care [...] Organization Details Last Modified Time Details Appointments None recorded. Lab None recorded. Referral None recorded. Procedures None recorded. Surgeries None recorded. Imaging CT, sinuses, w/o contrast 2024 025 [facility] (Imaging), [address] [place] [address], [place], [address], 09:36:34 Medication Orders prednison e 10 mg tablet 2024 025 [facility], [address] [place], [place], [id number], 11:50:49 Patient TargetsNo targets recorded. Patient Instructions Encounter Date Encounter Id Patient Instructions Last Modified By Organization Details Last Modified Time 04/11/2024 [id number] Nursing Documentation for Allergy Testing (Split Test): Vital Signs: Blood Pressure: 106/76 Pulse: 82 Oxygen Saturation: 97 % Weight: lbs: 170 kg: History of asthma: Yes Asthma Meds: .albuterol last used: weeks ago Chance that : No Antihistamine use: No Med used: Nursing notes: Patient tolerated procedure well Yes Benadryl cream to test sites Patient became syncopal-placed in supine position Testing Performed by: CHELY Martines Requesting Provider Dr.Plosky gill Not available 04/11/2024 11:28:49 Reason for Referral None Reported. Results Created Date Observation Date Name Description Value Unit Range Abnormal Flag Note LastModifiedBy Organization Detail LastModifiedTime 07/11/2002/24/2022 imagi ng/yeimy hanson tic resul t No observ ation record ed. [email or web address] Not Available 00:16:58 Result Notes None recorded. Problems Name Problem SNOMED Code Status Onset Date Resolution Date Notes Provider Name and Address Organization Details Recorded Time Allergic rhinitis 26407240 Active 2023 KVNG SHANNON MD [address] [place] [address], [facility] [place], [address] , [facility] - [facility] 4 08:50:26 Obstructi ve sleep apnea syndrome 17817532 Active 2023 Obstructiv e sleep apnea (adult) (pediatric ); Note: Date Diagnosed: 03/17/2024 11:20 AM (G47.33) Not Available [facility] 02:36:04 Deviated nasal septum 161750755 Active 2023 Deviated nasal septum; Note: Date Diagnosed: 03/17/2024 11:36 AM (J34.2) Not Available [facility] 4 02:36:06 Polyp of nasal cavity and/or nasal sinus 727634571 Active 2023 Nasal polyp, unspecifie d; Note: Date Diagnosed: 03/17/2024 11:36 AM (J33.9) Not Available [facility] 4 02:36:09 Problem Notes None recorded. Procedures Surgical History Date Name Laterality Status Provider Name and Address Organization Details Recorded Time 4 Allergy Testing-Full completed [facility] 100 [facility],[address], [address], [facility] - [facility] 04/11/2024 11:27:45 Imaging Results None recorded. [...] propionate 50 mcg/actuatio n nasal spray,suspen melinda Scammon 2 spray once a day active Not [...] Updated DateTime 01/04/2025 162.56 cm 32.6 kg/m2 10128.55 g Tess Emely [place] - [facility] 01/04/2025 10:50:05 Date Recorded Oxygen saturation Oxygen saturation in Arterial blood by Pulse oximetry Heart rate Systolic And Diastolic Provider Name and Address Organization Details Last Updated DateTime 04/11/2024 97 % 97 % 82 /min 106/76 mm[Hg] EMELY CROCKER, RMA 100 [facility] 100, [place], [address] , [place] - [facility] 10:57:45 Social History None recorded. Functional Status None recorded. Mental Status None recorded. Family History Nothing Reported. Medical History No medical history recorded. Gynecological HistoryNo gynecological history recorded. Obstetrics History GPAL:G 0 P 0 0 0 0 Past Encounters Encounter ID Performer Location Encounter Start Date Encounter Closed Date Diagnosis/Indication Diagnosis SNOMED-CT Code Diagnosis ICD10 Code Diagnosis Note [id number] EMELY CROCKER, RMA Allergy 100 [facility],[place] [address] [place] [address] 04/11/2024 10:45:26 04/11/2024 13:09:17 Allergic rhinitis 00505714 J30.9 [id number] JAY SPRINGER MD [facility] [address] [place] [address] 01/04/2025 10:25:34 01/04/2025 11:18:03 Deviated nasal septum 869786575 J34.2 Obstructiv e sleep apnea syndrome 87939564 G47.33 Polyp of n angelina cavity and/or nasal sinus 356068375 J33.9 Health Concerns Section Related Observation LastModified by Organization Detai ls LastModified Time None Recorded Concern Status LastModified by Organization Details LastModified Time None Recorded Advance Directives Directive None Recorded Payers Insurance Date Sequence Insurance Name Policy Number Policy Olivo Covered Member ID Olivo Member ID Guarantor Name 2024 1 [employer] Trista Jimenez Kelsey [id number] Trista S Kelsey 04/29/2025 1 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 JAY SPRINGER MD [address] [place] [address], [address], [facility] - [facility] 01/13/2025 21:12:27 OBGyn Episode No OBEpisode recorded.
--- OUTSIDE RECORDS SUMMARY | 2025-05-31 12:35 | XMS_ITS | Clinical Summary ---
Author Organization [address] Address [address] [place] [phone] Phone Care Team Providers Care Vice President For Instruction Name Role Phone Manuelito Brown Primary Care Provider [phone] Allergies No known active allergies Medications naltrexone-bupro [...] taking this medication 120 tablet 3 Active Social History Tobacco Use Types Packs/Day Years [...] Annual BMP Blood Test 12/24/2024 Influenza Vaccine (#1) 2025 HIB Vaccines Aged Out No longer [...] 5 Years) and At-Risk Patients (6 to 49 Years) Aged Out No longer eligible b ased on patient's age to complete this topic RSV Immunization Patients Under 20 months Aged Out No longer eligible b ased on patient's age to complete this topic Varicella Vaccines Aged Out No longer eligible based on patient's age to complete this topic Insurance [facility] Care Teams Vice President For Instruction Relationship Specialty Start Date End Date Manuelito Brown DO [address] [place] [address] [place] [phone] PCP - General Internal Medicine 06/02/22
--- OUTSIDE RECORDS SUMMARY | 2025-05-31 12:36 | XMS_ITS ---
Author Name [facility] Organization Unknown History of Medication Use Medication Directions Dispensed Refills Start Date End Date Stat us naltrexone-bupropion (CONTRAVE) 8-90 mg per ER tablet week 1: 1 pill with breakfast, week 2: 1 pill with breakfast & 1 pill with dinner, week 3: 2 pills with breakfast & 1 pill with dinner, week 4: 2 pills with breakfast & 2 pills with dinner, be sure to have water when taking this medication 01/24/2025 active tirzepatide (Mounjaro) 2.5 mg/0.5 mL injection Inject 0.5 mL (2.5 mg total) under the skin every 7 (seven) days. 01/08/2025 active No known medications No known medications active Problems Problem Status Onset Date Problem Type Date of Resolution Source Class 1 obesity with body mass index (BMI) of 33.0 to 33.9 in adult, unspecified obesity type, unspecified whether serious comorbidity present active EncounterDiagnosisAct CT_THS [facility] Secondary hypertension active EncounterDiagnosisAct CT_[facility] AARON on CPAP active EncounterDiagnosisAct CT_THSFRAN Encounters Encounter Type Encounter Reason Primary Diagnosis Location Date Ambulatory Obesity, class 1 Obesity, class 1 [facility] 02/13/2025 Ambulatory Obesity, class 1 Obesity, class 1 [facility] 01/08/2025 Ambulatory [facility] 01/01/2025 Ambulatory Obesity, class 1 Obesity, class 1 [facility] 12/24/2024 Care Team Organization Name Specialty Phone Email Start Date End Da te [facility] Primary Care 01/30/2025 [facility] Primary Care 12/25/2024
[2025-05-31 12:48] VITALS: BP 128/84; PULSE 77; TEMP 36.4; O2SAT 98; BMI 32.1
--- NOTE | 2025-05-31 12:48 | MHC.OFFWIV ---
Intake Vital Signs 05/31/25 12:48 Height 5 ft 4 in Weight 187 lb BMI 32.1 BP 128/84 Blood Pressure Location Lt brachial Position Sitting Pulse 77 Pulse Source Pulse Oximeter Temp 97.6 F Temp Source Oral Pulse Oximetry (%) 98 Oxygen Delivery Method Room Air Intake Visit Reasons: EP Stubbed toe, swelling, infected? Intake Note: pt here for right 5th toe swelling and redness after stubbing her toe 2 weeks ago Patient Tobacco Use Status: Never used Tobacco Allergies house dust Allergy (Mild, Verified 05/31/25 12:51) unknown cat dander Allergy (Verified 05/31/25 12:51) Sneezing Medication List - Last Reconciled 05/31/25 by Maricarmen Pate PA-C albuterol sulfate 90 mcg/actuation 2 puffs inhalation Q6H PRN estradiol 1 patch transdermal 2XW fluticasone propionate 50 mcg/actuation sprays intranasal PRN Do you need a note to return to daycare/school/sports/work: No HPI HPI Comments History of Present Illness Details History - The patient is a 55-year-old female presenting with a right pinky toe injury and concerns about possible cellulitis. - The patient stubbed her left pinky toe against a couch approximately two weeks ago, resulting in significant pain and swelling. - The toe remains sore and tender, with noticeable swelling and mild redness, but the patient can move it with no pain. - Despite initial self-treatment with ibuprofen and Tylenol, the swelling has not subsided significantly, prompting the patient to seek medical evaluation. Physical Exam General: Cooperative, healthy appearing, comfortable, no acute distress and well developed Orientation: Patient oriented x3 Limitations: No limitations Head: Normal to inspection Ears: Hearing grossly normal bilaterally Nose: Normal External nose present Face and sinus: Normal facial exam Mouth: normal, moist oral mucosa Eyes: Appearance normal, both eyes and all related structures Neck: Normal visual inspection and Yes full ROM Respiratory: Normal respiratory effort and able to speak in complete sentences. Skin: Tender and puffy area on the pinky toe, slight redness noted, but not indicative of cellulitis Neuro: Patient oriented x3 Extremities: Moving all extremities normally, mild TTP and mild erythema right 5th digit, full ROM, no warmth, NVI PFSH Medical History Sleep apnea Asthma Hx of transfusion of packed red blood cells Diabetes Restless legs Loud snoring Deviated nasal septum Surgical History History of umbilical hernia repair Hx of colonoscopy H/O: hysterectomy History of Family History Father No problems noted. Mother No problems noted. Maternal Grandmother Colon cancer Social History Household Members: Family Alcohol intake: current Alcohol intake frequency: holidays/special occasions only Patient Tobacco Use Status: Never used Tobacco Current occupational status: employed Current occupation: [employer] [place] Review of Systems Const All systems reviewed & are unremarkable except as noted in HPI and below Physical Exam Vital Signs: Last Vital Signs Temp 97.6 F 05/31/25 12:48 Pulse 77 05/31/25 12:48 BP 128/84 05/31/25 12:48 Pulse Ox 98 05/31/25 12:48 Oxygen Delivery Method Room Air 05/31/25 12:48 BMI result Body Mass Index 32.1 Assessment & Plan Assessment & Plan (1) Injury of toe, left, superficial: Code(s): S90.935A - Unspecified superficial injury of left lesser toe(s), initial encounter Qualifiers: Encounter type: initial encounter Qualified Code(s): S90.935A - Unspecified superficial injury of left lesser toe(s), initial encounter Plan: Patient was informed and verbally consented to the use of an ambient scribe for clinic note documentation during this visit 1. Toe Injury - The patient is advised to tape the injured toe to an adjacent toe to provide support and facilitate healing. - Rest and avoid further trauma to the area to allow for recovery. - Observation recommended as the erythema is mild and not suggestive of cellulitis at this time. - Antibiotics were considered but deemed unnecessary unless symptoms worsen. Coding Level of Care Code New Pt Level 2 (47332) Diagnoses Superficial injury of toe of left foot, initial encounter S90.935A Encounter type: initial encounter
== END 2025-05-31 13:09 | disposition home or self-care (01) ==
PROVIDERS: Visit Provider Physician Assistant
DX: S90.935A Unspecified superficial injury of left lesser toe(s), initial encounter (principal)

== ENCOUNTER 2025-07-17 14:07 | Outpatient (REF) | payer OTHER, SELFPAY ==
--- NOTE | ~2025-07-17 | MM_ITS ---
EXAMINATION: MM DIAGNOSTIC DIGITAL BREAST TOMOSYNTHESIS, BILATERAL Right limited ultrasound. CLINICAL INFORMATION: Right axillary palpable lump. Pea-sized. COMPARISON: Mammography: Comparison is made with relevant prior exams. TECHNIQUE: Digital breast mammography with tomosynthesis is performed in both the craniocaudal and mediolateral oblique views along with computer-aided detection (CAD). FINDINGS: The breasts are heterogeneously dense, which may obscure small masses (ACR BI-RADS breast composition Category c). Left: There are no significant masses, abnormal calcifications, or other abnormalities. Right: BB marker in the right axilla without underlying abnormal finding. No suspicious masses calcifications or other abnormal findings. Targeted color Doppler ultrasound scanning in the right axilla measures normal axillary tissue. There is no sonographic abnormal finding. Results are provided to the patient at time of visit by the technologist. MM/MM tomosynthesis diagnostic BI IMPRESSION: Left: Negative. Right: No mammographic or sonographic abnormal finding in the right axilla to account for the patient's right palpable lump. Recommend clinical evaluation and follow-up. ASSESSMENT: BI-RADS BI-RADS 1 - Negative RECOMMENDATION: 1 year F/U This patient's information was entered into a reminder system with a target due date for their next mammogram. Electronically signed by: Rosemary Vallejo DO 07/17/2025 03:01 PM EDT
--- OUTSIDE RECORDS SUMMARY | 2025-07-17 15:08 | XMS_ITS | Clinical Summary ---
Author Organization [address] Address [address] [place] [phone] Phone Care Team Providers Care Water Safety Instructor Name Role Phone Manuelito Brown Primary Care Provider [phone] Allergies No known active allergies Medications naltrexone-bupro [...] Panel) 10/19/2022 Colorectal Cancer Screening: Colonoscopy 10/19/2022 HIV Screening 10/19/2022 Hepatitis C Screening 10/19/2022 Social Influencers of Health Screening 10/19/2022 COVID-19 Vaccine (3 - 2023-2 5 season) 2024 04/16/2021, 03/27/2021 Depression Screening 11/21/2024 Hypertension/CHF/CAD Annual BMP Blood Test 12/24/2024 Influenza [...] complete this topic Insurance [address] [place] [id number] [facility]) Care Teams Water Safety Instructor Relationship Specialty Start Date End Date Manuelito Brown DO [address] [place] [phone] PCP - General Internal Medicine 06/02/22
== END 2025-07-17 14:08 | disposition home or self-care (01) ==
LOC: HO.MAMMO 14:07
PROVIDERS: PCP Internal Medicine; Visit Provider Internal Medicine
DX: N63.31 Unspecified lump in axillary tail of the right breast (principal)
CPT/HCPCS: 76642; 77062; 77066

== ENCOUNTER → 2025-07-17 14:30 | Outpatient (BNV) | payer OTHER, SELFPAY | PROVIDERS: PCP Internal Medicine; Visit Provider Internal Medicine | DX: N63.31 Unspecified lump in axillary tail of the right breast (principal) | CPT/HCPCS: 76642; 77062; 77066 ==

== ENCOUNTER 2025-08-03 11:11 | Outpatient (REF) | payer OTHER, SELFPAY ==
--- OUTSIDE RECORDS SUMMARY | 2025-08-03 11:16 | XMS_ITS | Clinical Summary ---
Author Organization [address] Address [address] [place] [phone] Phone Care Team Providers Care Intranet Developer Name Role Phone Manuelito Brown Primary Care Provider [phone] Allergies No known active allergies Medications naltrexone-bupro [...] 10/19/2022 Social Influencers of Health Screening 10/19/2022 Depression Screening 11/21/2024 Hypertension/CHF/CAD Annual BMP Blood Test 12/24/2024 COVID-19 Vaccine (3 - 2024-2 6 season) 2025 04/16/2021, 03/27/2021 Influenza Vaccine (#1) 2025 HIB Vaccines Aged [...] complete this topic [place] [address] [place] [id number] [facility] ([facility]) Care Teams Intranet Developer Relationship Specialty Start Date End Date Manuelito Brown DO [address] [place] [phone] PCP - General Internal Medicine 06/02/22
[2025-08-03 14:11] LABS: Cholesterol 243 mg/dL (<200); HDL Cholesterol 60 mg/dL (>40); Triglycerides 144 mg/dL (<150)
[2025-08-03 14:26] LABS: Thyroid Stimulating Hormone 1.60 uIU/mL (0.32-4.0)
== END 2025-08-03 11:12 | disposition home or self-care (01) ==
LOC: HO.HMGCLDS 11:11
PROVIDERS: PCP Internal Medicine; Visit Provider Internal Medicine
DX: Z00.00 Encounter for general adult medical examination without abnormal findings (principal); E66.9 Obesity, unspecified; Z13.29 Encounter for screening for other suspected endocrine disorder
CPT/HCPCS: 36415; 80061; 84436; 84443

== ENCOUNTER 2025-09-07 10:51 | Outpatient (AMB) | payer OTHER, SELFPAY ==
--- OUTSIDE RECORDS SUMMARY | 2025-09-07 10:53 | XMS_ITS | Data Portability ---
Author Organization [place] [facility], Allergy Address [address] [address] Care Team Providers Care Batch Weigher Name Role Phone ALIYAH KEMP Primary Care [...] Imaging CT, sinuses, w/o contrast 2024 025 [facility] (Imaging), [address] [place] [address], [place], [address], 09:36:34 Medication Orders prednison e 10 mg tablet 2024 025 [facility], [address] [place], [place], [id number], 11:50:49 Patient TargetsNo targets recorded. Patient Instructions [...] Flag Note LastModifiedBy Organization Detail LastModifiedTime 07/11/2002/24/2022 maximi nirav/yeimy hanson tic resul t No observ ation record ed. [email or web address] Not Available 00:16:58 Result Notes None recorded. Problems Name Problem SNOMED Code Status Onset Date Resolution Date Notes Provider Name and Address Organization Details Recorded Time Obstructi ve sleep apnea syndrome 75687422 Active 2023 Obstructiv e sleep apnea (adult) (pediatric ); Note: Date Diagnosed: 03/17/2024 11:20 AM (G47.33) Not Available [facility] 4 02:36:04 Deviated nasal septum 066260165 Active 2023 Deviated nasal septum; Note: Date Diagnosed: 03/17/2024 11:36 AM (J34.2) Not Available [facility] 4 02:36:06 Polyp of nasal cavity and/or nasal sinus 483895181 Active 2023 Nasal polyp, unspecifie d; Note: Date Diagnosed: 03/17/2024 11:36 AM (J33.9) Not Available [facility] 4 02:36:09 Allergic rhinitis 32461918 Active 2023 KVNG SHANNON MD [address],[facility], [place], [address] , [facility] 4 08:50:26 Problem Notes None recorded. Procedures Surgical History Date Name Laterality Status Provider Name and Address Organization Details Recorded Time Allergy Testing-Full completed EMELY CROCKER Jessica [address], [place], [address], [facility] 04/11/2024 11:27:45 Imaging Results None recorded. [...] propionate 50 mcg/actuatio n nasal spray,suspen melinda [place] 2 spray once a day active Not [...] Updated DateTime 01/04/2025 162.56 cm 32.6 kg/m2 30025.55 g Tess Emely [place] - [facility] 01/04/2025 10:50:05 Date Recorded Oxygen saturation Oxygen saturation in Arterial blood by Pulse oximetry Heart rate Systolic And Diastolic Provider Name and Address Organization Details Last Updated DateTime 04/11/2024 97 % 97 % 82 /min 106/76 mm[Hg] EMELY CROCKER, RMA 100 [facility] 100, [place], [address] , [place] [facility] 10:57:45 Social History None recorded. Functional Status None recorded. Mental Status None recorded. Family History Nothing Reported. Medical History No medical history recorded. Gynecological HistoryNo gynecological history recorded. Obstetrics History GPAL:G 0 P 0 0 0 0 Past Encounters Encounter ID Performer Location Encounter Start Date Encounter Closed Date Diagnosis/Indication Diagnosis SNOMED-CT Code Diagnosis ICD10 Code Diagnosis IMO Codes Diagnosis Note [id number] EMELY CROCKER, RMA Allergy 100 [facility],[place] [address] [facility] [place] [address] 04/11/2024 10:45:26 04/11/2024 13:09:17 Allergic rhinitis 57030167 J30.9 [id number] JAY SPRINGER MD [facility] [address] [place] [address] 01/04/2025 10:25:34 01/04/2025 11:18:03 Deviated nasal septum 473671450 J34.2 Obstructiv e sleep apnea syndrome 40919811 G47.33 Polyp of n angelina cavity and/or nasal sinus 525084287 J33.9 Health Concerns Section Related Observation LastModified by Organization Detai ls LastModified Time None Recorded Concern Status LastModified by Organization Details LastModified Time None Recorded Advance Directives Directive None Recorded Payers Insurance Date Sequence Insurance Name Policy Number Policy Olivo Covered Member ID Olivo Member ID Guarantor Name 2024 1 [employer] Trista Andersenoso [id number] Trista Jimenez Kelsey 04/29/2025 1 [employer]UE [employer] OF [facility] (EPO [id number] Trista Jimenez Kelsey [id number] Trista S Kelsey 2024 1 [employer] [facility] (PPO) [id number] Trista Cole [id number] Trista Cole Notes Date Note Type [...] considered in the future. JAY SPRINGER MD [address] [place] [address], [place], [address], [facility] - [facility] 01/13/2025 21:12:27 OBGyn Episode No OBEpisode recorded.
--- OUTSIDE RECORDS SUMMARY | 2025-09-07 10:53 | XMS_ITS | Clinical Summary ---
Author Organization [address] [facility] Address [address] [place] [address] Phone Care Team Providers Care Immigration Investigator Name Role Phone Manuelito Brown Primary Care Provider [phone] Allergies No known active allergies Medications naltrexone-bupro [...] Last Done Comments Breast Cancer Screening 1972 Colorectal Cancer Screening: Colonoscopy 1972 DTaP,Tdap,and Td Vaccines (1 - Tdap) 1991 Hepatitis B Vaccines (1 of 3 - 19+ 3-dose series) 1991 Cervical Cancer Screening: P ap Smear 1993 Pneumococcal Vaccine: 50+ Years (1 of 1 - PCV) 2022 Zoster Vaccines (1 of 2) 2022 Cholesterol Screening (Lipid Panel) 10/19/2022 HIV Screening 10/19/2022 Hepatitis C Screening 10/19/2022 Social Influencers of Health Screening 10/19/2022 Depression Screening 11/21/2024 COVID-19 Vaccine (3 - 2024-2 6 season) 2025 04/16/2021, 03/27/2021 Influenza Vaccine (#1) 2025 RSV Immunization Adult Patients (1 - 1-dose 75+ series) 2047 HIB Vaccines Aged Out No longer eligi [...] complete this topic [place] [address] [place] [id number] [facility] ([facility]) Care Teams Immigration Investigator Relationship Specialty Start Date End Date Manuelito Brown DO [address] [place] [phone] PCP - General Internal Medicine 06/02/22
[2025-09-07 11:29] VITALS: BP 124/80; PULSE 101; RESP 17; TEMP 36.7; O2SAT 97; BMI 32.3
--- NOTE | 2025-09-07 11:29 | AM.OFFWIN_ITS ---
Intake Vital Signs 09/07/25 11:29 Height 5 ft 4 in Weight 188 lb BMI 32.3 BP 124/80 Blood Pressure Location Lt brachial Position Sitting Respiration 17 Pulse 101 H Pulse Source Pulse Oximeter Temp 98.1 F Temp Source Oral Pulse Oximetry (%) 97 Oxygen Delivery Method Room Air Intake Visit Reasons: EP, cough, sore throat, body ache Intake Note: Pt is here today c/o sore throat and bodyaches x4days Patient Tobacco Use Status: Never used Tobacco Allergies house dust Allergy (Mild, Verified 09/07/25 11:40) unknown cat dander Allergy (Verified 09/07/25 11:40) Sneezing HPI HPI Comments History of Present Illness Details This is a 55-year-old female who presented to the walk-in clinic complaining of viral URI symptoms x4 days. Patient states she developed a cough, which is occasionally productive of thick yellow sputum, sore throat, myalgias, and fever/chills (T-max 100.8? F 4 days ago but nothing since). She does report some mild shortness of breath and has been having to utilize her rescue albuterol inhaler more than usual. [facility] Medical History Sleep apnea Asthma Hx of transfusion of packed red blood cells Diabetes Restless legs Loud snoring Deviated nasal septum Surgical History History of umbilical hernia repair Hx of colonoscopy H/O: hysterectomy History of Family History Father No problems noted. Mother No problems noted. Maternal Grandmother Colon cancer Social History Household Members: Family Alcohol intake: current Alcohol intake frequency: holidays/special occasions only Patient Tobacco Use Status: Never used Tobacco Current occupational status: employed Current occupation: [employer] Review of Systems Const All systems reviewed & are unremarkable except as noted in HPI and below Reports no additional complaints Eyes Reports no additional complaints ENT Reports no additional complaints Card Reports no additional complaints Resp Reports no additional complaints GI Reports no additional complaints Reports no additional complaints Musc Reports no additional complaints Skin/Breast Reports system reviewed and no additional complaints, except as documented Neuro Reports no additional complaints Psych Reports no additional complaints Endo Reports no additional complaints [place]/Lymph Reports no additional complaints Aller/Immun Reports no additional complaints Physical Exam Exam Exam: Vital signs reviewed. Constitutional: Non-toxic appearing. No acute distress. Well-developed and well-nourished. HEENT: Normocephalic and atraumatic. Tympanic membranes without erythema, edema, or bulging bilaterally. External auditory canals without erythema or edema bilaterally. Moist mucous membranes. Mild posterior pharyngeal erythema without exudates or edema. Skin: Warm and dry. No rashes or lesions noted. Neck: Full and painless range of motion. No cervical lymphadenopathy. Cardio: Regular rate and rhythm. No murmurs, gallops, or rubs. No lower extremity edema. No JVD. Pulmonary: No respiratory distress. No accessory muscle usage. Scattered end expiratory wheezing. Gastrointestinal: Soft, nontender, and nondistended in all 4 quadrants. Musculoskeletal: Normal range of motion in joints throughout the body. No deformity or other signs of injury. Neuro: Alert and oriented x4. Cranial nerves 2-12 grossly intact. No focal deficits appreciated. Psych: Normal mood and affect. Vital Signs: Last Vital Signs Temp 98.1 F 09/07/25 11:29 Pulse 101 H 09/07/25 11:29 Resp 17 09/07/25 11:29 BP 124/80 09/07/25 11:29 Pulse Ox 97 09/07/25 11:29 Oxygen Delivery Method Room Air 09/07/25 11:29 BMI result Body Mass Index 32.3 Results AMB Rapid Strep AMB Rapid Strep Negative Last Edit by Annita Smith CMA on 09/07/25 11:44 Results Reviewed Results Reviewed: Laboratory Last Values Strep Scn Rapid Clinic Negative 09/07/25 11:30 Assessment & Plan Assessment & Plan (1) Acute upper respiratory infection, unspecified: Code(s): J06.9 - Acute upper respiratory infection, unspecified (2) Acute bronchitis: Code(s): J20.9 - Acute bronchitis, unspecified Qualifiers: Bronchitis organism: unspecified organism Qualified Code(s): J20.9 - Acute bronchitis, unspecified Plan This is a 55-year-old female with history of mild persistent asthma who presented to the walk-in clinic with viral URI symptoms x4 days. On physical examination, she has end expiratory wheezing throughout both lungs. History and physical most consistent with an acute viral bronchitis. Patient was given a prescription for p.o. prednisone 40 mg daily x5 days for treatment of acute bronchitis. Also recommended symptomatic management including rest, increased fluids, advil/tylenol for pain/fever, humidification at bedtime, normal saline or fluticasone nasal spray, and over the counter throat lozenges/decongestants. Patient advised to follow up here or go to the emergency room for worsening/persistent symptoms. Patient verbalized understanding and is agreeable with the plan. Orders: Orders AMB Rapid Strep Screen Today Z13.9 - Encounter for screening, unspecified SARS-CoV2/FLU/RSV Today J06.9 - Acute upper respiratory infection, unspecified Medications: New prednisone 40 mg (2 x 20 mg) PO DAILY 10 tabs 0RF Coding Level of Care Code Est Pt Level 3 (25748) Diagnoses Acute upper respiratory infection, unspecified J06.9 Acute bronchitis, unspecified organism J20.9 Bronchitis organism: unspecified organism
== END 2025-09-07 12:04 | disposition home or self-care (01) ==
PROVIDERS: PCP Internal Medicine; Visit Provider Physician Assistant Medical
DX: J06.9 Acute upper respiratory infection, unspecified (principal); J20.9 Acute bronchitis, unspecified; Z13.9 Encounter for screening, unspecified

== ENCOUNTER 2025-09-07 10:51 | Outpatient (REF) | payer OTHER, SELFPAY ==
[2025-09-07 15:10] LABS: Resp Syncy Virus RNA Qual PCR NEGATIVE (Negative); SARS COV2 PCR INHOUSE NEGATIVE (Negative)
== END 2025-09-07 10:52 | disposition home or self-care (01) ==
LOC: HO.LNP 10:51
PROVIDERS: Physician Assistant Medical; PCP Internal Medicine
DX: J06.9 Acute upper respiratory infection, unspecified (principal); J02.9 Acute pharyngitis, unspecified; J20.9 Acute bronchitis, unspecified; Z13.89 Encounter for screening for other disorder
CPT/HCPCS: 87637; 87880